=== PATIENT | female | born 1990 | race Caucasian/White ===

== ENCOUNTER 2021-06-01 15:13 | Outpatient (REF) | payer MEDICAID, SELFPAY ==
--- NOTE | ~2021-06-01 | MR_ITS ---
EXAMINATION: MR BRAIN WITHOUT AND WITH CONTRAST CLINICAL INFORMATION: Arnold-Chiari syndrome with spina bifida. Left leg numbness. COMPARISON: Brain MRI 02/22/2010. TECHNIQUE: Multiplanar, multisequence imaging of the brain was performed before and after the intravenous administration of 9 mL of Gadavist. FINDINGS: There is no acute infarction, mass, hemorrhage, or extra-axial collection. No abnormal or unexpected intracranial enhancement is seen. The ventricles, sulci, and basilar cisterns are normal in size and configuration. Normal appearance of the brain parenchyma The cerebellar tonsils are mildly low-lying. There is no effacement of cervicomedullary CSF. The upper cervical cord is unremarkable. The flow voids of the major intracranial arteries appear intact. The bones and extracranial soft tissues are within normal limits. MR/MR head/brain wo/w con IMPRESSION: No mass lesion, acute infarction, or abnormal intracranial enhancement. Mildly low-lying cerebellar tonsils.
== END 2021-06-01 15:14 | disposition home or self-care (01) ==
LOC: HO.MRI 15:13
PROVIDERS: Visit Provider Nurse Practitioner Family
DX: Q07.01 Arnold-Chiari syndrome with spina bifida (principal); R20.0 Anesthesia of skin
CPT/HCPCS: 70553; A9585

== ENCOUNTER 2023-06-24 17:48 | Outpatient (REF) | payer MEDICAID, SELFPAY ==
[2023-06-25 01:57] LABS: CT PCR NOT DETECTED (Not Detect.); NG PCR NOT DETECTED (Not Detect.)
== END 2023-06-24 17:49 | disposition home or self-care (01) ==
LOC: HO.HHCLNP 17:48
PROVIDERS: Visit Provider Nurse Practitioner Primary Care
DX: Z11.3 Encounter for screening for infections with a predominantly sexual mode of transmission (principal)
CPT/HCPCS: 0353U

== ENCOUNTER 2023-07-02 08:41 | Outpatient (REF) | payer MEDICAID, SELFPAY ==
[2023-07-02 11:50] LABS: Anion Gap 13 (12-20); Blood Urea Nitrogen 15 mg/dL (9-16); Calcium 9.6 mg/dL (8.4-10.2); Carbon Dioxide 23 mmol/L (22-29); Chloride 108 mmol/L (96-108); Cholesterol 187 mg/dL (<200); Estimated Glomerular Filt Rate > 60; Glucose Random 99 mg/dL (60-115); HDL Cholesterol 70 mg/dL (>40); LDL Cholesterol Calculated 102 mg/dL (<100); Potassium 4.5 mmol/L (3.3-5.1); Sodium 139 mmol/L (135-145); Triglycerides 75 mg/dL (<150)
[2023-07-02 11:52] LABS: TSH reflex Free T4 0.87 uIU/mL (0.32-4.0); Vitamin D 25-OH Total 53.4 ng/mL (>30)
[2023-07-02 12:08] LABS: Vitamin B12 387 pg/mL (200-900)
[2023-07-02 12:10] LABS: HIV AB/AG Nonreactive (Nonreactive); HIV Num 1 0.06 S/CO (0.00-0.99); ~HepC Num1 0.22 S/CO (0.00-0.79); ~Hepatitis C Antibody Nonreactive (Nonreactive)
[2023-07-03 14:24] LABS: RPR Rapid Plasma Reagin NON-REACTIVE (NON-REACTIVE)
== END 2023-07-02 08:42 | disposition home or self-care (01) ==
LOC: HO.HHCL 08:41
PROVIDERS: Visit Provider Nurse Practitioner Primary Care
DX: Z00.00 Encounter for general adult medical examination without abnormal findings (principal); R79.89 Other specified abnormal findings of blood chemistry; Z13.220 Encounter for screening for lipoid disorders; E53.8 Deficiency of other specified B group vitamins; Z11.3 Encounter for screening for infections with a predominantly sexual mode of transmission
CPT/HCPCS: 36415; 80048; 80061; 82306; 82607; 82746; 84443; 86592; 86803; 87389

== ENCOUNTER 2023-07-22 16:26 | Outpatient (REF) | payer OTHER, SELFPAY ==
--- NOTE | ~2023-07-22 | MM_ITS ---
EXAMINATION: MM SCREENING DIGITAL BREAST TOMOSYNTHESIS, BILATERAL CLINICAL INFORMATION: Screening. Asymptomatic. COMPARISON: Mammography: This is a baseline mammogram. TECHNIQUE: Digital breast tomosynthesis is performed in both the craniocaudal and mediolateral oblique views along with computer-aided detection (CAD). Synthesized 2D images are generated from the tomosynthesis. FINDINGS: There are scattered areas of fibroglandular density (ACR BI-RADS breast composition Category b). There are no significant masses, abnormal calcifications, or other abnormalities. MM/MM tomosynthesis screening BI IMPRESSION: No mammographic evidence of malignancy. ASSESSMENT: BI-RADS BI-RADS 1 - Negative RECOMMENDATION: Routine annual mammography screening. 1 year F/U This examination should not preclude the clinical evaluation of a suspicious palpable abnormality. This patient's information was entered into a reminder system with a target due date for their next mammogram.
== END 2023-07-22 16:27 | disposition home or self-care (01) ==
LOC: HO.MAMMO 16:26
PROVIDERS: PCP Nurse Practitioner Primary Care; Visit Provider Nurse Practitioner Primary Care
DX: Z12.31 Encounter for screening mammogram for malignant neoplasm of breast (principal)
CPT/HCPCS: 77063; 77067

== ENCOUNTER → 2023-07-22 16:30 | Outpatient (BNV) | payer OTHER, SELFPAY | PROVIDERS: PCP Nurse Practitioner Primary Care; Visit Provider Radiology Diagnostic Radiology | DX: Z12.31 Encounter for screening mammogram for malignant neoplasm of breast (principal) | CPT/HCPCS: 77063; 77067 ==

== ENCOUNTER → 2023-12-30 08:58 | Outpatient (BNV) | payer OTHER, SELFPAY | PROVIDERS: PCP Nurse Practitioner Primary Care; Visit Provider Internal Medicine | DX: Z80.3 Family history of malignant neoplasm of breast (principal); Z12.39 Encounter for other screening for malignant neoplasm of breast | CPT/HCPCS: 77049 ==

== ENCOUNTER 2023-12-30 09:04 | Outpatient (REF) | payer OTHER, SELFPAY ==
[2023-12-30] MEDS: gadobutroL 10 ML VIAL IVPUSH (10:31)
== END 2023-12-30 09:05 | disposition home or self-care (01) ==
LOC: HO.MRI 09:04
PROVIDERS: PCP Nurse Practitioner Primary Care; Visit Provider Nurse Practitioner Primary Care
DX: Z12.39 Encounter for other screening for malignant neoplasm of breast (principal)
CPT/HCPCS: 77049; A9585

== ENCOUNTER 2024-08-12 | Outpatient (REF) | payer OTHER, SELFPAY ==
[2024-08-17 17:58] LABS: C. trachomatis RNA TMA NOT DETECTED (NOT DETECTED); N. gonorrhoeae RNA TMA NOT DETECTED (NOT DETECTED)
[2024-08-18 00:54] LABS: Trichomonas (NAAT) NOT DETECTED (NOT DETECTED)
--- OUTSIDE RECORDS SUMMARY | 2024-08-18 12:14 | XMS_ITS | Encounter Summary ---
Author Organization [facility] Address [address] [place] [address] Phone Care Team Providers Care Director Of Hotel Name Role Phone Maria Elena Alston NP Primary Care Provider [phone] Encounter Details Date Type Department Care Team (Late st Contact Info) Description 09/19/2011 Documentation [facility] [place] Family Medicine [address] [place] [address] Family Medicine, Physician [address] [place], [place] [address] Social History Tobacco Use Types Packs/Day Years Used Date Smoking Tobacco: Never Assessed Comments Unknown Sex and Gender Information Value Date Recorded Sex Assigned at Not on file Legal Sex Female 4:52 PM EDT Gender Identity Not on file Sexual Orientation Not on file documented as of this encounter Plan of Treatment Not on file documented as of this encounter Visit Diagnoses Not on filedocumented in this encounter Care Teams Director Of Hotel Relationship Specialty Start Date End Date Maria Elena Alston NP PCP - General 09/20/16 documented as of this encounter
--- OUTSIDE RECORDS SUMMARY | 2024-08-18 12:14 | XMS_ITS | Encounter Summary ---
Author Organization [employer] Address [address] [place] [id number] Care Team Providers Care Seed Analysis Laboratory Assistant Name Role Phone Domonique Duong Primary Care Provider Reason for Visit * Reason Onset Date Comments Appointment Request 03/05/2023 Encounter Details Date Type Department Care Team ([facility] st Contact Info) Description 03/05/2023 Telephone [facility] MEDICINE [address] [place], [place] [phone] Domonique Duong ANP [address] [place] [address] Appointment Request Social History Tobacco Use Types Packs/Day Years Used Date Smoking Tobacco: Never Assessed Comments Unknown Sex and Gender Information Value Date Recorded Sex Assigned at Female 12/10/2021 10:36 AM EDT Legal Sex Female 10:36 AM EDT Gender Identity Female 06/30/2024 3:52 PM EDT Sexual Orientation Straight 06/30/2024 3: 52 PM EDT Sexual Orientation Choose not to disclose 2024 3:52 PM EDT documented as of this encounter Miscellaneous Notes * Telephone Encounter - Hemant Vee - 03/05/2023 2:51 PM EST Tc from pt requesting a PE Appt with provider. Please contact pt @ [phone] documented in this encounter Plan of Treatment Not on file documented as of this encounter Visit Diagnoses Not on filedocumented in this encounter Care Teams Seed Analysis Laboratory Assistant Relationship Specialty Start Date End Date Domonique Duong ANP [address] [place] [address] PCP - General Family Medicine 04/09/19 documented as of this encounter
== END 2024-08-12 00:01 | disposition home or self-care (01) ==
LOC: HO.HHCLNP
PROVIDERS: Visit Provider Advanced Practice Midwife
DX: Z12.4 Encounter for screening for malignant neoplasm of cervix (principal); Z11.3 Encounter for screening for infections with a predominantly sexual mode of transmission; N92.3 Ovulation bleeding
CPT/HCPCS: 87491; 87591; 87626; 87661; 88175

== ENCOUNTER 2024-08-31 06:28 | Outpatient (REF) | payer OTHER, SELFPAY ==
--- OUTSIDE RECORDS SUMMARY | 2024-08-31 06:31 | XMS_ITS | Encounter Summary ---
Author Organization [employer] Address [address] [place] [address] Care Team Providers Care Braided Band Assembler Name Role Phone Domonique Duong Primary Care Provider Reason for Visit * Reason Onset Date Comments Appointment Request 03/05/2023 Encounter Details Date Type Department Care Team ([facility] st Contact Info) Description 03/05/2023 Telephone [facility] MEDICINE [address] [place], [place] [phone] Domonique Duong ANP [address] [place] [address] Appointment Request Social History Tobacco Use Types [...] Appt with provider. Please contact pt @ [phone] documented in this encounter Plan of Treatment Not on file documented as of this encounter Visit Diagnoses Not on filedocumented in this encounter Care Teams Braided Band Assembler Relationship Specialty Start Date End Date Domonique Duong ANP [address] [place] [address] PCP - General Family Medicine 04/09/19 documented as of this encounter
--- OUTSIDE RECORDS SUMMARY | 2024-08-31 06:31 | XMS_ITS | Encounter Summary ---
Author Organization [facility] Address [address] [place] [address] Phone Care Team Providers Care Feeder/Folder Name Role Phone Maria Elena Alston NP Primary Care Provider [phone] Encounter Details Date Type Department Care Team (Late st Contact Info) Description 09/19/2011 Documentation [facility] [place] Family Medicine [address] [place] [address] Family Medicine, Physician [address] [place], [place] [address] Social History Tobacco Use Types Packs/Day Years [...] on filedocumented in this encounter Care Teams Feeder/Folder Relationship Specialty Start Date End Date Maria Elena Alston NP PCP - General 09/20/16 documented as of this encounter
--- OUTSIDE RECORDS SUMMARY | 2024-08-31 06:31 | XMS_ITS | Clinical Summary ---
Author Organization [facility] Address [address] [place] [address] Phone Care Team Providers Care Linen Room Custodian Name Role Phone Ad Domonique DUARTE Primary Care Provider [phone] Allergies No known active allergies Medications dextroamphetami ne-amphetamine (ADDERALL) 10 mg Tab tablet TAKE 1 TABLET BY MOUTH EVERY DAY TWICE A DAY EVERY MORNING AND AT 12:00 PM NOON 2021 Active cholecalciferol (VITAMIN D3) 2,000 unit tablet Take 1 tablet by mouth daily. 02/25/2020 Active Active Problems Problem Noted Date Diagnosed Date Anxiety and depression 06/07/2021 Chiari malformation 03/21/2015 Elevated blood-pressure read ing without diagnosis of hypertension 03/16/2015 Immunizations No known immunizations Social History Tobacco Use Types Packs/Day Years Used Date Smoking Tobacco: Never Smokeless Tobacco: Never Alcohol Use Standard Drinks/Week Comments Yes 0 (1 standard drink = 0.6 oz pur e alcohol) Education Answer Date Recorded Are you interested in more education? Not on chandra e 06/07/2022 Are you concerned about learning? Not on file 06/07/2022 No 06/07/2022 No 06/07/2022 Digital Access Answer Date Recorded No 07/06/2022 No 07/06/2022 No 07/06/2022 Reliable internet access at home? Not on file 07/06/2022 Device with a working camera? Not on file Comments Unknown Sex and Gender Information Value Date Recorded Sex Assigned at Female 07/09/2018 3:40 PM EDT Legal Sex Female 3:19 PM EDT Gender Identity Female 07/09/2018 3:40 PM EDT Sexual Orientation Straight 07/09/2018 3: 40 PM EDT Last Filed Vital Signs Vital Sign Reading Time Taken Comments Blood Pressure 123/77 06/07/2021 7:16 PM EDT Pulse 55 06/07/2021 7:16 PM EDT Temperature 36.6 C (97.9 F) 06/07/2021 7:16 PM EDT Respiratory Rate 20 06/07/2021 7:16 PM EDT Oxygen Saturation 100% 06/07/2021 7:16 PM EDT Inhaled Oxygen Concentration - - Weight 90.7 kg (200 lb) 06/07/2021 7:16 PM EDT Height 162.6 cm (5' 4 ) 06/07/2021 7:16 PM EDT Body Mass Index 34.33 06/07/2021 7:16 PM EDT Plan of Treatment Health Maintenance Due Date Last Done Comments DEPRESSION SCREENING 2004 HEPATITIS C SCREENING 2010 HIV ONE-TIME SCREENING (18-65 YEARS) 2010 PAP SMEAR 2013 COVID-19 VACCINE ( season) 2023 07/24/2020, 06/26/2020 Adult Td,Tdap Booster 04/09/2029 04/09/2019 , 06/26/2015, 01/13/2008, Additional history exists HIB VACCINES Completed 08/30/1993, 08/11, 1992, Additional history exists MENINGOCOCCAL VACCINES (ACWY) Aged Out 01/13/2008 No longer eligible based on patient's age to complete this topic SMOKING STATUS SCREENING (Once After 26 Yrs) Completed 07/09/2018 HEPATITIS A VACCINES Aged Out No long er eligible based on patient's age to complete this topic MENINGOCOCCAL VACCINES (B) Aged Out N o longer eligible based on patient's age to complete this topic PNEUMOCOCCAL VACCINES (0-49 years) Aged Out No longer eligible based on patient's age to complete this topic Medical Devices Not on file Insurance [facility] C3 ACO [facility] C3 ACO [facility] C3 ACO [facility]3 ACO [facility] C3 ACO [facility]3 ACO [facility]3 [facility] C3 ACO [facility] C3 ACO Care Teams Linen Room Custodian Relationship Specialty Start Date End Date Domonique Duong ANP [address] [place] [address] PCP - General Family Medicine 06/07/21 Additional Source Comments The information contained in this document represents components of the legal health record. It is not the complete legal health record.[facility]
== END 2024-08-31 06:29 | disposition home or self-care (01) ==
LOC: HO.LAB 06:28
PROVIDERS: PCP Nurse Practitioner Primary Care; Visit Provider Nurse Practitioner Primary Care
DX: Z00.00 Encounter for general adult medical examination without abnormal findings (principal); E55.9 Vitamin D deficiency, unspecified
CPT/HCPCS: 36415; 82306; 84443

== ENCOUNTER 2024-09-09 06:27 | Outpatient (REF) | payer OTHER, SELFPAY ==
--- NOTE | ~2024-09-09 | XR_ITS ---
EXAMINATION: XR HIP 2 OR MORE VIEWS RIGHT HISTORY: worsening R hip pain > 3 mo COMPARISON: There are no prior studies available for comparison. FINDINGS: Two views of the right hip are submitted. Osseous mineralization is normal. There is no fracture or dislocation. The joint space is maintained. The soft tissues are unremarkable. XR/XR hip RT min 2V IMPRESSION: Unremarkable examination of the right hip. Electronically signed by: Julian Yeboah MD 09/09/2024 07:06 AM EDT
--- OUTSIDE RECORDS SUMMARY | 2024-09-09 06:29 | XMS_ITS | Encounter Summary ---
Author Organization [employer] Address [address] [place] [address] Care Team Providers Care Supervisor Cook Room Name Role Phone Domonique Duong Primary Care Provider [phone] Reason for Visit * Reason Onset Date Comments Appointment Request 03/05/2023 Encounter Details Date Type Department Care Team ([facility] st Contact Info) Description 03/05/2023 Telephone [facility] MEDICINE [address] [place], [place] [phone] Domonique Duong ANP [address] [place] [address] Appointment Request Social History Tobacco Use Types [...] Appt with provider. Please contact pt @ [phone] documented in this encounter Plan of Treatment Not on file documented as of this encounter Visit Diagnoses Not on filedocumented in this encounter Care Teams Supervisor Cook Room Relationship Specialty Start Date End Date Domonique Duong ANP [address] [place] [address] PCP - General Family Medicine 04/09/19 documented as of this encounter
--- OUTSIDE RECORDS SUMMARY | 2024-09-09 06:29 | XMS_ITS | Clinical Summary ---
Author Organization [facility] Address [address] [place] [address] Phone Care Team Providers Care Pickle Sorter Name Role Phone Domonique Duong NP Primary Care Provider [phone] Allergies No known active allergies Medications dextroamphetami [...] topic Medical Devices Not on file Insurance [facility] C3 ACO [facility] C3 ACO [facility] A[facility] ACO [facility] ACO [facility] ACO [facility] ACO [facility]3 ACO [facility] C3 ACO Care Teams Pickle Sorter Relationship Specialty Start Date End Date Domonique Duong NP [address] [place] [address] PCP - General Family Medicine 06/07/21 Additional Source Comments The information contained in this document represents components of the legal health record. It is not the complete legal health record.[facility]
--- OUTSIDE RECORDS SUMMARY | 2024-09-09 06:30 | XMS_ITS | Encounter Summary ---
Author Organization [facility] Address [address] [place] [address] Phone Care Team Providers Care Sales Representative Electric Service Name Role Phone Maria Elena Alston NP Primary Care Provider [phone] Encounter Details Date Type Department Care Team (Late st Contact Info) Description 09/19/2011 Documentation [facility] [place] [address] [place] [address] Family Medicine, Physician [address] [place], [place] [address] Social History Tobacco Use Types Packs/Day Years [...] on filedocumented in this encounter Care Teams Sales Representative Electric Service Relationship Specialty Start Date End Date Maria Elena Alston NP PCP - General 09/20/16 documented as of this encounter
== END 2024-09-09 06:28 | disposition home or self-care (01) ==
LOC: HO.XRAY 06:27
PROVIDERS: PCP Nurse Practitioner Primary Care; Visit Provider Nurse Practitioner Primary Care
DX: M25.551 Pain in right hip (principal)
CPT/HCPCS: 73502

== ENCOUNTER → 2024-09-09 06:32 | Outpatient (BNV) | payer OTHER, SELFPAY | PROVIDERS: PCP Nurse Practitioner Primary Care; Visit Provider Radiology Diagnostic Radiology | DX: M25.551 Pain in right hip (principal) | CPT/HCPCS: 73502 ==

== ENCOUNTER 2024-09-15 12:24 | Outpatient (REF) | payer OTHER, SELFPAY ==
--- NOTE | ~2024-09-15 | MM_ITS ---
EXAMINATION: MM DIAGNOSTIC DIGITAL BREAST TOMOSYNTHESIS, BILATERAL Limited left breast ultrasound. CLINICAL INFORMATION: Palpable lump below the left breast superior abdomen. Patient has a strong family history of breast cancer. COMPARISON: Mammography: Comparison is made with relevant prior exams. TECHNIQUE: Digital breast mammography with tomosynthesis is performed in both the craniocaudal and mediolateral oblique views along with computer-aided detection (CAD). FINDINGS: The breasts are heterogeneously dense, which may obscure small masses (ACR BI-RADS breast composition Category c). BB marker below the left breast seen only on MLO view with an underlying asymmetry. No suspicious calcifications or other abnormal findings. Targeted color Doppler ultrasound scanning in the area the patient's palpable lump 8:00 14 cm from the nipple below the left breast demonstrates a subdermal hypoechoic oval cysts consistent with sebaceous cyst/epidermal inclusion cyst. The cyst measures 8 x 8 x 6 mm. Recommend clinical evaluation and follow-up for this area. Results are provided to the patient at time of visit by the technologist. MM/MM tomosynthesis diagnostic BI IMPRESSION: Right: Negative. Left: Subdermal hypoechoic sebaceous cyst/epidermal inclusion cyst at 8:00 14 cm from the nipple correlating with the patient's palpable lump. This is below the breast on the upper abdomen area and superficial. Recommend clinical evaluation and follow-up. The patient has a strong family history of breast cancer. ASSESSMENT: BI-RADS BI-RADS 2 - Benign Findings RECOMMENDATION: 1 year F/U Clinical evaluation and follow-up. This patient's information was entered into a reminder system with a target due date for their next mammogram. Electronically signed by: Jayna Magallon DO 09/15/2024 01:10 PM EDT
--- OUTSIDE RECORDS SUMMARY | 2024-09-15 13:02 | XMS_ITS | Encounter Summary ---
Author Organization [facility] Address [address] [place] [address] Phone Care Team Providers Care Rental Representative Name Role Phone Maria Elena Alston NP Primary Care Provider [phone] Encounter Details Date Type Department Care Team (Late st Contact Info) Description 09/19/2011 Documentation [facility] [place] Family Medicine [address] [place] [address] Family Medicine, Physician [address] [place], [place] [address] Social History Tobacco Use Types Packs/Day Years [...] on filedocumented in this encounter Care Teams Rental Representative Relationship Specialty Start Date End Date Maria Elena Alston NP PCP - General 09/20/16 documented as of this encounter
--- OUTSIDE RECORDS SUMMARY | 2024-09-15 13:02 | XMS_ITS | Encounter Summary ---
Author Organization [facility] Address [address] [place] [address] Care Team Providers Care Vending Technician Name Role Phone Margie Ralph DO Primary Care Pro vider Unavailable Encounter Details Date Type Department Care Team Description 04/23/2019 Release of Information Medical Records [address] [place] [id number] Abstract, Provider Social History Tobacco Use Types Packs/Day Years Used Date Smoking Tobacco: Former Smokeless Tobacco: Never Alcohol Use Standard Drinks/Week Comments Yes 0 (1 standard drink = 0.6 oz pur e alcohol) occ-soc Sex Assigned at Date Recorded Not on file documented as of this encounter Plan of Treatment Not on file documented as of this encounter Visit Diagnoses Not on filedocumented in this encounter Care Teams Vending Technician Relationship Specialty Start Date End Date Margie Ralph DO PCP - General Internal Medicine 03/14/15 documented as of this encounter
--- OUTSIDE RECORDS SUMMARY | 2024-09-15 13:02 | XMS_ITS | Encounter Summary ---
Author Organization [employer] Address [address] [place] [address] Care Team Providers Care Typewriter Tester Name Role Phone Domonique Duong Primary Care Provider [phone] Reason for Visit * Reason Onset Date Comments Appointment Request 03/05/2023 Encounter Details Date Type Department Care Team (Late st Contact Info) Description 03/05/[address] [facility] MEDICINE [address] [place], [place] [phone] Domonique Duong ANP [address] [place] [address] Appointment Request Social History Tobacco Use Types [...] Appt with provider. Please contact pt @ [phone] documented in this encounter Plan of Treatment Not on file documented as of this encounter Visit Diagnoses Not on filedocumented in this encounter Care Teams Typewriter Tester Relationship Specialty Start Date End Date Domonique Duong ANP [address] [place] [address] PCP - General Family Medicine 04/09/19 documented as of this encounter
--- OUTSIDE RECORDS SUMMARY | 2024-09-15 13:02 | XMS_ITS | Clinical Summary ---
Author Organization [facility] Address [address] [place] [address] Phone Care Team Providers Care Heating Equipment Repairer Name Role Phone Ad Domonique DUARTE Primary Care Provider [phone] Allergies No known active allergies Medications dextroamphetami [...] topic Medical Devices Not on file Insurance [facility] C3 ACO [facility] C3 ACO [facility] C3 ACO [facility] C3 ACO [facility] C3 ACO [facility] C3 ACO [facility] C3 [facility]CO [facility] C3 ACO [facility] C3 ACO Care Teams Heating Equipment Repairer Relationship Specialty Start Date End Date Domonique Duong ANP [address] [place] [address] PCP - General Family Medicine 06/07/21 Additional Source Comments The information contained in this document represents components of the legal health record. It is not the complete legal health record.[facility]
== END 2024-09-15 12:25 | disposition home or self-care (01) ==
LOC: HO.MAMMO 12:24
PROVIDERS: PCP Nurse Practitioner Primary Care; Visit Provider Advanced Practice Midwife
DX: F98.8 Other specified behavioral and emotional disorders with onset usually occurring in childhood and adolescence (principal); Q07.00 Arnold-Chiari syndrome without spina bifida or hydrocephalus; G57.11 Meralgia paresthetica, right lower limb; N63.24 Unspecified lump in the left breast, lower inner quadrant; Z80.3 Family history of malignant neoplasm of breast; Z12.39 Encounter for other screening for malignant neoplasm of breast
CPT/HCPCS: 76642; 77062; 77066; 99212

== ENCOUNTER → 2024-09-15 12:30 | Outpatient (BNV) | payer OTHER, SELFPAY | PROVIDERS: PCP Nurse Practitioner Primary Care; Visit Provider Internal Medicine | DX: N63.20 Unspecified lump in the left breast, unspecified quadrant (principal); Z80.3 Family history of malignant neoplasm of breast | CPT/HCPCS: 76642; 77062; 77066 ==

== ENCOUNTER 2024-09-15 15:41 | Outpatient (AMB) | payer OTHER, SELFPAY ==
--- NOTE | 2024-09-15 15:43 | A.OFFVIS_ITS ---
Intake Visit Reasons: 3 month ADD Allergies No Known Allergies Allergy (Unverified 09/15/24 15:48) Medication List - Last Reconciled 09/15/24 by Micki Cuba CNP cetirizine 10 mg PO DAILY dextroamphetamine-amphetamine 10 mg (Adderall) 10 mg PO BID 30 days HPI Comments Details: She was doing okay. 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 Having some intermittent numbness to right anterior lateral thigh for last few months. R hip XR ordered by PCP and completed PT for LBP. ADD symptoms generally well-controlled with Adderall, able to focus and complete tasks. Mood has been okay, some more stress lately related to family health. She has not seen therapist recently. Sleep was okay, melatonin helped. She was planning wedding for 04/2025 in [facility]. Got [employer] certification in fall 2023. She was diagnosed with Arnold-Chiari type II malformation at age 12 on an MRI that was done for evaluation. She was seen both locally and in [employer], but it was advised not to decompress it. Over the years, she has done fine. She has noted some memory issues and trouble with focus and attention. She did graduate from college and had good grades. She has no headache, balance problems, trouble swallowing, or other symptoms that could suggest compression of the brainstem. Memory is better. FORMERLY [facility], [facility] Medical History (Updated 09/15/24 @ 15:55 by Micki Cuba CNP) Neuropathy Arnold-Chiari malformation Anxiety and depression ADD (attention deficit disorder) Review of Systems Const Denies chills, Denies daytime sleepiness, Denies difficulty sleeping, Denies fatigue, Denies fever(s), Denies frequent falls, Denies headache(s), Denies increased appetite, Denies poor appetite, Denies snoring, Denies weakness, Denies weight gain and Denies weight loss Eyes Denies loss of vision ENT Denies vertigo, Denies dizziness, Denies headache(s) and Denies neck pain Card Denies chest pain at rest, Denies chest pain with activity, Denies syncope, Denies leg edema, Denies palpitations, Denies dyspnea and Denies dyspnea on exertion Resp Denies cough, Denies dyspnea, Denies dyspnea on exertion and Denies snoring GI Denies abdominal pain, Denies constipation, Denies heartburn, Denies diarrhea and Denies nausea Denies urinary frequency, Denies urinary incontinence and Denies urinary urgency Musc Denies abnormal gait, Denies back pain, Denies myalgias, Denies arthralgias, Denies neck pain, Reports numbness and Reports tingling Neuro Denies abnormal gait, Denies vertigo, Denies dizziness, Denies syncope, Denies frequent falls, Denies headache(s), Denies lack of coordination, Denies loss of vision, Reports memory loss, Reports numbness, Denies Other visual disturbances, Denies restless legs, Denies seizure-like activity, Reports tingling, Denies paresthesias, Denies tremor(s) and Denies weakness Psych Reports anxiety, Reports depression, Denies auditory hallucinations, Reports memory loss and Denies visual hallucinations Endo Denies fatigue and Denies palpitations Physical Exam Const Other: General Appearance:? normal, in no acute distress. Heart:? S1, S2 normal, no murmurs. Lungs:? clear anteriorly and posteriorly. Musculoskeletal:? normal. Extremities:? no edema. Psych:? alert, oriented, cognitive function intact, cooperative with exam. Neuro Other: Abnormal Neurological Findings:?none.? Mental Status: alert and oriented X 3. Normal attention, orientation, memory, and affect. Cranial Nerves: Pupils are equal, round, and reactive to light. External ocular muscles are intact. Visual wells are full, no ptosis. Face is symmetrical, no facial weakness or droop. Facial sensations are normal. Tongue protrudes in midline. Palate elevates symmetrically. Shoulder shrugging is normal Motor Examination: Normal muscle tone, bulk and strength. No atrophy or fasciculations. No drift of the extended upper extremities. DTR 2+. Plantars are flexor. Sensory Exam: Normal light touch, temperature, pinprick, vibration, and joint- position sensations. Rhomberg sign is absent. Coordination: No ataxia. No titubation. Oiqich-ze-fqea, weaf-ntrm-jwqv test, and rapid alternating movements were normal. Gait Exam: Within normal limits. Cerebellar Signs: Hnphdb-vh-wnna and svte-zq-xtet is normal. No dysdiadochokinesia. Extrapyramidal System: No tremor, rigidity with normal facial expressions. No bradykinesia. No bradyphrenia. Normal arm swing and posture. No propulsion or retropulsion. Speech: Normal. No dysphasia or dysarthria. Results Reviewed Results Reviewed: [address] [address] XRay Report Signed Patient: Ansley Zayas MR#: [id number] : 1990 Acct:[id number] Age/Sex: 34 / F ADM Date: 09/09/24 Loc: HO.XRAY Attending Dr: Onelia Stanford NP Ordering Physician: ONELIA STANFORD NP Date of Service: 09/09/24 Procedure(s): XR hip RT min 2V Accession Number(s): [id number] cc: ONELIA STANFORD NP~ EXAMINATION: XR HIP 2 OR MORE VIEWS RIGHT HISTORY: worsening R hip pain > 3 mo COMPARISON: There are no prior studies available for comparison. FINDINGS: Two views of the right hip are submitted. Osseous mineralization is normal. There is no fracture or dislocation. The joint space is maintained. The soft tissues are unremarkable. XR/XR hip RT min 2V IMPRESSION: Unremarkable examination of the right hip. Assessment & Plan Assessment & Plan (1) ADD (attention deficit disorder): Code(s): F98.8 - Other specified behavioral and emotional disorders with onset usually occurring in childhood and adolescence Category: Medical Qualifiers: Attention deficit type: unspecified type Qualified Code(s): F98.8 - Other specified behavioral and emotional disorders with onset usually occurring in childhood and adolescence Plan: Continue Adderall 10mg 1 tablet in the morning and at noon. (2) Meralgia paraesthetica: Code(s): G57.10 - Meralgia paresthetica, unspecified lower limb Category: Medical Qualifiers: Laterality: right Qualified Code(s): G57.11 - Meralgia paresthetica, right lower limb Plan: She was educated on this condition. Avoid wearing tight fitting clothing, belts, weight loss. Coding Level of Care Code Est Pt Level 4 (05329) Diagnoses Attention deficit disorder, unspecified type F98.8 Attention deficit type: unspecified type Meralgia paresthetica of right side G57.11 Laterality: right
== END 2024-09-15 16:06 | disposition home or self-care (01) ==
LOC: HO.HSM 15:42
PROVIDERS: PCP Nurse Practitioner Primary Care; Referring Provider Nurse Practitioner Primary Care; Visit Provider Registered Nurse
DX: F98.8 Other specified behavioral and emotional disorders with onset usually occurring in childhood and adolescence (principal); G57.11 Meralgia paresthetica, right lower limb
CPT/HCPCS: 99214

== ENCOUNTER 2024-09-17 13:49 | Outpatient (REF) | payer OTHER, SELFPAY ==
--- NOTE | ~2024-09-17 | US_ITS ---
EXAMINATION: US PELVIS TRANSABDOMINAL AND TRANSVAGINAL HISTORY: intermenstrual bleeding x 2-3y COMPARISON: There are no prior studies available for comparison. TECHNIQUE: Transabdominal and endovaginal real-time 2D fernandez-scale ultrasound was performed. FINDINGS: Uterus: The uterus is normal in size, measuring 7.0 x 3.0 x 4.5 cm. Myometrium has a normal echotexture. No fibroids are identified. Endometrium: The endometrial stripe measures 5 mm in thickness. Right ovary: The right ovary measures 3.9 x 2.4 x 2.3 cm. The right ovary is normal in size and echotexture. A few faint calcifications are noted. Left ovary: The left ovary measures 4.7 x 2.2 x 2.3 cm. The left ovary is normal in size and echotexture. Pelvic fluid: none. US/US pelvic and transvaginal IMPRESSION: Unremarkable pelvic ultrasound. Electronically signed by: Julian Yeboah MD 09/17/2024 03:02 PM EDT
--- OUTSIDE RECORDS SUMMARY | 2024-09-17 13:53 | XMS_ITS | Clinical Summary ---
Author Organization [facility] Address [address] [place] [address] Phone Care Team Providers Care Bobbin Winder Name Role Phone Ad Domonique DUARTE Primary Care Provider [phone] Allergies No known active allergies Medications dextroamphetami [...] topic Medical Devices Not on file Insurance [facility] [facility] [facility] [employer] [facility] [employer] [facility] [employer] [facility] C3 ACO Care Teams Bobbin Winder Relationship Specialty Start Date End Date Domonique Duong ANP [address] [place] [id number] PCP - General Family Medicine 06/07/21 Additional Source Comments The information contained in this document represents components of the legal health record. It is not the complete legal health record.[facility]
--- OUTSIDE RECORDS SUMMARY | 2024-09-17 13:53 | XMS_ITS | Encounter Summary ---
Author Organization [facility] Address [address] [place] [address] Phone Care Team Providers Care Sales Agent Trading Stamps Name Role Phone Maria Elena Aslton NP Primary Care Provider [phone] Encounter Details Date Type Department Care Team (Late st Contact Info) Description 09/19/2011 Documentation [facility] [place] [address] [place] [address] Family Medicine, Physician [address] [place], [place] [phone] Social History Tobacco Use Types Packs/Day Years [...] filedocumented in this encounter Care Teams Sales Agent Trading Stamps Relationship Specialty Start Date End Date Maria Elena Alston NP PCP - General 09/20/16 documented as of this encounter
--- OUTSIDE RECORDS SUMMARY | 2024-09-17 13:53 | XMS_ITS | Encounter Summary ---
Author Organization [employer] Address [address] [place] [address] Care Team Providers Care Track Surfacing Machine Operator Name Role Phone Domonique Duong Primary Care Provider [phone] Reason for Visit * Reason Onset Date Comments Appointment Request 03/05/2023 Encounter Details Date Type Department Care Team (Late st Contact Info) Description 03/05/2023 Telephone [facility] MEDICINE [address] [place], [place] [phone] Domonique Duong ANP [address] [place] [address] Appointment Request Social History Tobacco Use Types [...] Appt with provider. Please contact pt @ [phone] documented in this encounter Plan of Treatment Not on file documented as of this encounter Visit Diagnoses Not on filedocumented in this encounter Care Teams Track Surfacing Machine Operator Relationship Specialty Start Date End Date Domonique Duong ANP [address] [place] [address] PCP - General Family Medicine 04/09/19 documented as of this encounter
== END 2024-09-17 13:50 | disposition home or self-care (01) ==
LOC: HO.US 13:49
PROVIDERS: PCP Nurse Practitioner Primary Care; Visit Provider Advanced Practice Midwife
DX: N92.3 Ovulation bleeding (principal)
CPT/HCPCS: 76830; 76856

== ENCOUNTER → 2024-09-17 13:50 | Outpatient (BNV) | payer OTHER, SELFPAY | PROVIDERS: PCP Nurse Practitioner Primary Care; Visit Provider Radiology Diagnostic Radiology | DX: N92.6 Irregular menstruation, unspecified (principal) | CPT/HCPCS: 76830; 76856 ==

== ENCOUNTER 2024-09-23 13:31 | Outpatient (REF) | payer OTHER, SELFPAY ==
--- NOTE | ~2024-09-23 | XR_ITS ---
EXAMINATION: XR LUMBAR SPINE 2-3 VIEWS HISTORY: chronic low back pain COMPARISON: There are no prior studies for comparison. FINDINGS: AP, lateral, and coned down views of the lumbar spine are submitted. Osseous mineralization is normal. Five nonrib-bearing lumbar vertebral bodies are identified, maintaining normal height and alignment without evidence of fracture or spondylolisthesis. There is moderate disc space narrowing at L5-S1. The posterior elements are intact. The visualized paraspinal soft tissues are unremarkable. XR/XR lumbar spine 2-3V IMPRESSION: Moderate disc space narrowing at L5-S1. Electronically signed by: Julian Yeboah MD 09/23/2024 02:59 PM EDT
--- NOTE | ~2024-09-23 | XR_ITS ---
EXAMINATION: XR HIP 2 OR MORE VIEWS RIGHT HISTORY: R hip fall, struggling to bear weight COMPARISON: Comparison is made with the prior examination dated 09/09/2024. FINDINGS: Two views of the right hip are submitted. Osseous mineralization is normal. There is no fracture or dislocation. The joint space is maintained. The soft tissues are unremarkable. XR/XR hip RT min 2V IMPRESSION: Unremarkable examination of the right hip. Electronically signed by: Julian Yeboah MD 09/23/2024 02:59 PM EDT
--- OUTSIDE RECORDS SUMMARY | 2024-09-23 14:28 | XMS_ITS | Encounter Summary ---
Author Organization [facility] Address [address] [place] [address] Care Team Providers Care Production Hand Name Role Phone Margie Ralph DO Primary Care Pro vider Unavailable Encounter Details Date Type Department Care Team Description 04/23/2019 Release of Information Medical Records [address] [place] [id number] Abstract, Provider Social History Tobacco Use Types [...] on filedocumented in this encounter Care Teams Production Hand Relationship Specialty Start Date End Date Margie Ralph DO PCP - General Internal Medicine 03/14/15 documented as of this encounter
--- OUTSIDE RECORDS SUMMARY | 2024-09-23 14:28 | XMS_ITS | Clinical Summary ---
Author Organization [facility] Address [address] [place] [address] Phone Care Team Providers Care Three Dimensional Map Modeler Name Role Phone Ad Domonique DUARTE Primary Care Provider [phone] Allergies No known active allergies Medications dextroamphetami [...] topic Medical Devices Not on file Insurance [facility] C3 ACO [facility] C3 ACO [facility] C3 ACO [facility] C3 ACO [facility] C3 ACO [facility] C3 ACO [facility] C3 ACO [facility] C3 ACO [facility] C3 ACO Care Teams Three Dimensional Map Modeler Relationship Specialty Start Date End Date Domonique Duong ANP [address] [place] [id number] PCP - General Family Medicine 06/07/21 Additional Source Comments The information contained in this document represents components of the legal health record. It is not the complete legal health record.[facility]
--- OUTSIDE RECORDS SUMMARY | 2024-09-23 14:28 | XMS_ITS | Encounter Summary ---
Author Organization [employer] Address [address] [place] [address] Care Team Providers Care Sql Engineer Name Role Phone Domonique Duong Primary Care Provider [phone] Reason for Visit * Reason Onset Date Comments Appointment Request 03/05/2023 Encounter Details Date Type Department Care Team (Late st Contact Info) Description 03/05/2023 Telephone [facility] MED[facility]INE [address] [place], [place] [phone] Domonique Duong ANP [address] [place] [address] Appointment Request Social History Tobacco Use Types [...] Appt with provider. Please contact pt @ [phone] documented in this encounter Plan of Treatment Not on file documented as of this encounter Visit Diagnoses Not on filedocumented in this encounter Care Teams Sql Engineer Relationship Specialty Start Date End Date Domonique Duong ANP [address] [place] [address] PCP - General Family Medicine 04/09/19 documented as of this encounter
--- OUTSIDE RECORDS SUMMARY | 2024-09-23 14:28 | XMS_ITS | Encounter Summary ---
Author Organization [facility] Address [address] [place] [address] Phone Care Team Providers Care Supervisor Dried Yeast Name Role Phone Maria Elena Alston NP Primary Care Provider Encounter Details Date Type Department Care Team (Late st Contact Info) Description 09/19/2011 Documentation [facility] [place] Family Medicine [address] [place] [address] Family Medicine, Physician [address] [place], [place] [phone] Social History Tobacco Use Types Packs/Day Years [...] filedocumented in this encounter Care Teams Supervisor Dried Yeast Relationship Specialty Start Date End Date Maira Elena Alston NP PCP - General 09/20/16 documented as of this encounter
== END 2024-09-23 13:32 | disposition home or self-care (01) ==
LOC: HO.HHCX 13:31
PROVIDERS: PCP Nurse Practitioner Primary Care
DX: M54.50 Low back pain, unspecified (principal); M25.551 Pain in right hip; G89.29 Other chronic pain
CPT/HCPCS: 72100; 73502

== ENCOUNTER → 2024-09-23 14:00 | Outpatient (BNV) | payer OTHER, SELFPAY | PROVIDERS: PCP Nurse Practitioner Primary Care; Visit Provider Radiology Diagnostic Radiology | DX: M51.362 Other intervertebral disc degeneration, lumbar region with discogenic back pain and lower extremity pain (principal); M25.551 Pain in right hip; W19.XXXA Unspecified fall, initial encounter | CPT/HCPCS: 72100; 73502 ==

== ENCOUNTER 2024-09-27 14:28 | Outpatient (AMB) | payer OTHER, SELFPAY ==
[2024-09-27 14:52] VITALS: BP 155/82; PULSE 70; BMI 39.0
--- NOTE | 2024-09-27 14:52 | A.OFFVIS_ITS ---
Vital Signs 3 09/27/24 14:52 Height 5 ft 4 in Weight 227 lb BMI 39.0 BP 155/82 H Blood Pressure Location Lt brachial Position Sitting Pulse 70 Intake Visit Reasons: mass lower inner quad (L) breast Intake Note: Patient is seen in office for evaluation of a lump of the left breast, LIQ. us/mm:09/15/24 Patient denies any pain on her lower inner quad L breast. Denture Laboratory Technician Required: No Accompanied by: Self / Same As Patient Allergies No Known Allergies Allergy (Verified 09/27/24 14:51) Medication List - Last Reconciled 09/27/24 by Edgard Edwards MD cetirizine 10 mg PO DAILY dextroamphetamine-amphetamine 10 mg (Adderall) 10 mg PO BID 30 days HPI Comments Details: 34-year-old female patient presenting for evaluation of a lump located in the left chest wall below the left breast. She 1st noted the lump approximately 3-4 months ago but feels since this time the lump has actually decreased in size. She denies any significant pain redness or discharge from the site. She has been applying a black salve which seems to be helping to decrease the size. She denies any previous history of breast problems or breast surgery. Family history however is significant for her mother having breast cancer x2 and she subsequently succumbed to the disease. In addition her maternal grandmother also had breast cancer x2. The patient previously underwent genetic testing in 2016. She was found to have no clinically significant mutations. Your [facility] lifetime risk of breast cancer was calculated at 35.2%. She was placed on a high risk protocol including yearly mammogram alternating every 6 months with yearly breast MRI. A diagnostic mammogram and ultrasound performed on 09/15/2024 revealed an 8 x 8 x 6 mm subdermal hypoechoic oval cyst consistent with a sebaceous cyst located in the 8 o'clock position approximately 14 cm from the nipple below the actual breast tissue in the medial chest wall. No other suspicious findings were identified and the findings were felt to be benign (BI- RADS 2). FORMERLY [facility] Medical History Neuropathy Arnold-Chiari malformation Anxiety and depression ADD (attention deficit disorder) Review of Systems Const All systems reviewed & are unremarkable except as noted in HPI and below Physical Exam Vital Signs: Last Vital Signs Pulse 70 09/27/24 14:52 BP 155/82 H 09/27/24 14:52 BMI result Body Mass Index 39.0 Const General: cooperative and no acute distress Nutritional Appearance: well nourished Orientation/consciousness: patient oriented x3 Limitations: no limitations HEENT Head: Yes normocephalic and Yes atraumatic Ears: hearing grossly normal bilaterally Chest Other: Palpable intradermal lesion located below the inframammary crease in the left chest wall below the left breast measuring approximately 6 mm in diameter with no overlying skin change, tenderness, or fluctuance. Findings consistent with an epidermal inclusion cyst Chest/axillae images: 2 1. Site of palpable cyst left chest wall Resp Effort & Inspection: normal respiratory effort, no audible wheezes, no cough and no respiratory distress Cardio Jugular venous distension: no JVD GI Inspection: Yes normal to inspection Skin Other: Warm, dry, no rash Neuro General: patient oriented x3 Extrem General: Yes no clubbing, cyanosis or edema Assessment & Plan Assessment & Plan (1) Epidermal inclusion cyst: Code(s): L72.0 - Epidermal cyst Category: Medical Plan 34-year-old female patient with a high risk for breast cancer presenting with an epidermal inclusion cyst located in the left chest wall below the left breast. I reviewed the procedure to remove the lesion including the risks and benefits. She feels the cyst has decreased in size and is not particularly bothered by it at this time. We discussed excision as an option should the cyst increase in size, become infected or become symptomatic. She expressed understanding and agrees with the plan. Coding Level of Care Code New Pt Level 4 (44273) Diagnoses Epidermal inclusion cyst L72.0
--- OUTSIDE RECORDS SUMMARY | 2024-09-27 15:10 | XMS_ITS | Encounter Summary ---
Author Organization [employer] Address [address] [place] [address] Care Team Providers Care Rhythmic Gymnastics Coach Name Role Phone Domonique Duong Primary Care Provider Reason for Visit * Reason Onset Date Comments Appointment Request 03/05/2023 Encounter Details Date Type Department Care Team (Late st Contact Info) Description 03/05/2023 Telephone [facility] MEDICINE [address] [place], [place] [phone] Domonique Duong ANP [address] [place] [address] Appointment Request Social History Tobacco Use Types [...] Appt with provider. Please contact pt @ [phone] documented in this encounter Plan of Treatment Not on file documented as of this encounter Visit Diagnoses Not on filedocumented in this encounter Care Teams Rhythmic Gymnastics Coach Relationship Specialty Start Date End Date Domonique Duong ANP [address] [place] [address] PCP - General Family Medicine 04/09/19 documented as of this encounter
--- OUTSIDE RECORDS SUMMARY | 2024-09-27 15:11 | XMS_ITS | Encounter Summary ---
Author Organization [facility] Address [address] [place] [address] Phone Care Team Providers Care Process Lead Name Role Phone Maria Elena Alston NP Primary Care Provider [phone] Encounter Details Date Type Department Care Team (Late st Contact Info) Description 09/19/2011 [place] [facility] [place] [address] [place] [address] Family Medicine, Physician [address] [place], [place] [address] Social History Tobacco Use Types Packs/Day Years [...] on filedocumented in this encounter Care Teams Process Lead Relationship Specialty Start Date End Date Maria Elena Alston NP PCP - General 09/20/16 documented as of this encounter
--- OUTSIDE RECORDS SUMMARY | 2024-09-27 15:11 | XMS_ITS | Clinical Summary ---
Author Organization [facility] Address [address] [place] [address] Phone Care Team Providers Care Smelter Charger Name Role Phone Ad Domonique DUARTE Primary Care Provider [phone] Allergies No known active allergies Medications dextroamphetami [...] topic Medical Devices Not on file Insurance [facility] [employer] [facility] [facility] [employer] [facility] [employer] [facility] [employer] [facility] [employer] Care Teams Smelter Charger Relationship Specialty Start Date End Date Domonique Duong ANP [address] [place] [id number] PCP - General Family Medicine 06/07/21 Additional Source Comments The information contained in this document represents components of the legal health record. It is not the complete legal health record.[facility]
== END 2024-09-27 15:15 | disposition home or self-care (01) ==
LOC: HO.HGS 14:28
PROVIDERS: PCP Nurse Practitioner Primary Care; Visit Provider Surgery
DX: L72.0 Epidermal cyst (principal)
CPT/HCPCS: 99204

== ENCOUNTER → 2024-09-27 14:28 | Outpatient (BNVA) | payer OTHER, SELFPAY | PROVIDERS: PCP Nurse Practitioner Primary Care; Visit Provider Surgery | DX: L72.0 Epidermal cyst (principal) | CPT/HCPCS: 99202 ==

== ENCOUNTER 2024-11-02 09:00 | Outpatient (REF) | payer OTHER, SELFPAY ==
--- NOTE | 2024-11-02 09:33 | EMG_ITS ---
Chief complaint: Numbness and tingling of right lower extremity Reason for referral: Evaluate for peripheral neuropathy Referred by:Shaquille Harper NP Procedure done: Right lower extremity NCS/EMG Right tibial and peroneal motor studies were performed right superficial peroneal and sural sensory studies were performed and bilateral femoral lateral cutaneous sensory studies were also performed. Tibial H-reflex was obtained an EMG needle examination was performed. Superficial peroneal and sural sensory amplitudes were significantly diminished with conduction velocities in 20s and 30s. Lateral femoral cutaneous sensory conduction velocities were also diminished. Right tibial and peroneal motor distal latencies were prolonged with significant reduction of amplitude of peroneal response with conduction velocity in 20s while for tibial it was in 30s. Median and lateral mixed plantars responses were absent. F response was delayed for peroneal stimulation. Tibial H-reflex was absent. 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 There was no evidence of radiculopathy MTDD
--- OUTSIDE RECORDS SUMMARY | 2024-11-02 10:19 | XMS_ITS | Encounter Summary ---
Author Organization [employer] Address [address] [place] [address] 7 [place] [address] Care Team Providers Care Supervisor Silvering Department Name Role Phone Domonique Duong Primary Care Provider [phone] Reason for Visit * Reason Onset Date Comments Med Refill 11/26/2023 Encounter Details Date Type Department Care Team (Late st Contact Info) Description 11/26/2023 Refill [facility] [address] [place], [place] [phone] Domonique Duong ANP [address] [place] [address] Non-seasonal allergic rhinitis due to other allergic trigger Social History Tobacco Use Types Packs/Day Years Used Date Smoking Tobacco: Never Smokeless Tobacco: Never Depression Answer Date Recorded Patient Health Questionnaire-9 Score 0 06/24/2023 Patient Health Questionnaire-9 Score 0 06/24/2023 Last PHQ-9: Questionnaire Data Not on file 0 06/24/2023 Housing Stability Answer Date Recorded What is your housing situation today? I have garcia soto 06/24/[address] you li ve. Do you have problems with any of the following? None of the above 06/24/2023 Food Insecurity Answer Date Recorded Within the past 12 months, y ou worried that your food would run out before you got money to buy more: Never True 06/13/2023 Within the past 12 months,th e food you bought just didn't last and you didn't have enough money to get more: Never True 04/2023 Transportation Answer Date Recorded In the past 12 months, has l ack of transportation kept you from medical appts, meetings, work or from getting things needed for daily living? No 06/13/2023 Utilities Answer Date Recorded In the past 12 months, has t he electric, gas, oil or water company threatened to shut off services in your home? No 06/13/2023 Depression Answer Date Recorded Patient Health Questionnaire-2 Score 0 06/24/2023 Comments Unknown Sex and Gender Information Value Date Recorded Sex Assigned at Female 12/10/2021 10:36 AM EDT Legal Sex Female 10:36 AM EDT Gender Identity Female 06/30/2024 3:52 PM EDT Sexual Orientation Straight 06/30/2024 3: 52 PM EDT Sexual Orientation Choose not to disclose 2024 3:52 PM EDT documented as of this encounter Plan of Treatment Upcoming Encounters Date Type Department Care Team (Late st Contact Info) Description 12/23/2024 10:15 AM EST Office Visit [facility] [address] [place] [address] Domonique Duong ANP [address] [place] [address] documented as of this encounter Visit Diagnoses Diagnosis Non-seasonal allergic rhinitis due to other allergic trigger documented in this encounter Additional Health Concerns Assessment Noted Time PHQ-9 Depression Total Score: 0 06/24/19 24 10:23 AM EDT documented as of this encounter Care Teams Supervisor Silvering Department Relationship Specialty Start Date End Date Domonique Duong ANP [address] [place] [phone] PCP - General Family Medicine 04/09/19 documented as of this encounter
--- OUTSIDE RECORDS SUMMARY | 2024-11-02 10:19 | XMS_ITS | Encounter Summary ---
Author Organization [employer] Address [address] [place] [address] Care Team Providers Care Contact Worker Lithography Name Role Phone Domonique Duong Primary Care Provider [phone] Reason for Visit * Reason Onset Date Comments Appointment Request 03/05/2023 Encounter Details Date Type Department Care Team (Late st Contact Info) Description 03/05/2023 Telephone [facility]INE [address] [place], [place] [phone] Domonique Duong ANP [address] [place] [address] Appointment Request Social History Tobacco Use Types [...] Appt with provider. Please contact pt @ [phone] documented in this encounter Plan of Treatment Upcoming Encounters Date Type Department Care Team (Late st Contact Info) Description 12/23/2024 10:15 AM EST Office Visit [facility] [address] [place] [address] Domonique Duong ANP [address] [place] [address] documented as of this encounter Visit Diagnoses Not on filedocumented in this encounter Care Teams Contact Worker Lithography Relationship Specialty Start Date End Date Domonique Duong ANP [address] [place] [address] PCP - General Family Medicine 04/09/19 documented as of this encounter
--- OUTSIDE RECORDS SUMMARY | 2024-11-02 10:20 | XMS_ITS | Encounter Summary ---
Author Organization [facility] Address [address] [place] [address] Phone Care Team Providers Care Clamp Truck Driver Name Role Phone Maria Elena Alston NP Primary Care Provider [phone] Encounter Details Date Type Department Care Team (Late st Contact Info) Description 01/16/2012 Documentation [facility] Family Medicine [address] [place] [address] Family Medicine, Physician [address] [place], [place] [address] Social History Tobacco Use Types Packs/Day Years [...] on filedocumented in this encounter Care Teams Clamp Truck Driver Relationship Specialty Start Date End Date Maria Elena Alston NP PCP - General 09/20/16 documented as of this encounter
--- OUTSIDE RECORDS SUMMARY | 2024-11-02 10:20 | XMS_ITS | Encounter Summary ---
Author Organization [employer] Address [address] [place] [address] Care Team Providers Care Painter Sign Maintenance Name Role Phone Domonique Duong Primary Care Provider [phone] Encounter Details Date Type Department Care Team (Late st Contact Info) Description 07/17/2022 Orders Only [facility] MEDICINE [address] [place] [address] Melba Winchester LPN Social History Tobacco Use Types Packs/Day Years [...] Description 12/23/2024 10:15 AM EST Office Visit [facility] MEDICINE [address] [place] [address] Domonique Duong ANP [address] [place] [address] documented as of this encounter Visit Diagnoses Not on filedocumented in this encounter Care Teams Painter Sign Maintenance Relationship Specialty Start Date End Date Domonique Duong ANP [address] [place] [address] PCP - General Family Medicine 04/09/19 documented as of this encounter
--- OUTSIDE RECORDS SUMMARY | 2024-11-02 10:20 | XMS_ITS | Clinical Summary ---
Author Organization [facility] Address [address] [place] [address] Phone Care Team Providers Care Renal Case Manager Name Role Phone Maria Elena Alston KATIE Primary Care Provider [phone] Immunizations Immunization Administration Dates Next Due DTP 05/12/1997, 4,1992,10/10 H1N1 01/16/2009 HPV, Quadrivalent 01/16/2009,04/27/2008,01/13/20 08 Hep B, ped/adol 1992,1992,1992 Hib (PRP-T) 08/30/1993, 3,1992,07/11 IPV 11/12/1993,1992,1992 Influenza, injectable, trivalent 01/16/2009,04/2007 MMR 05/10/1996,05/17/1993 Meningococcal Conj (Menactra) MCV4P 01/13/2008 OPV 05/12/1997 Td (adult) (MBL), 2 Lf tetan us toxoid, PF, adsorbed 11/27/2004 Tdap 01/13/2008 Family History Relation Name Status Comments Father Father: Hyperte nsion Maternal Grandfather Materna l grandfather: cancer Maternal Grandmother Materna l grandmother: asthma/breast ca Mother Mother: hypothy roid/breast ca, Paternal Grandfather Paterna l grandfather: cancer/cardiac Social History Tobacco Use Types Packs/Day Years Used Date Smoking Tobacco: Former Comments:Former smoker Comments Unknown Sex and Gender Information Value Date Recorded Sex Assigned at Not on file Legal Sex Female 4:52 PM EDT Gender Identity Not on file Sexual Orientation Not on file Last Filed Vital Signs Vital Sign Reading Time Taken Comments Blood Pressure 100/60 09/18/2011 12:00 AM EDT Pulse - - Temperature 36.9 C (98.5 F) 2011 12:00 AM EDT Respiratory Rate - - Oxygen Saturation - - Inhaled Oxygen Concentration - - Weight 85.7 kg (189 lb) 09/18/2011 12:00 AM EDT Height 163.8 cm (5' 4.5 ) 09/18/2011 12:00 AM ED T Body Mass Index 31.94 09/18/2011 12:00 AM EDT Plan of Treatment Health Maintenance Due Date Last Done Comments Varicella Vaccines (1 of 2 - 13+ 2-dose series) 2005 DTaP,Tdap,and Td Vaccines (6 - Td or Tdap) 01/12/2018 01/13/2008, 11/27/2004, 05/12/1997, Additional history exists Influenza Vaccines (#1) 2024 01/16/2009, 01/12 COVID-19 Vaccine ( season) 2024 Hepatitis B Vaccines Completed 1992, 1992, 1992 HIB Vaccines Completed 08/30/1993, 05/1992, 1992, Additional history exists MMR Vaccines Completed 05/10/1996, 05/17/1993 IPV Vaccines Completed 05/12/1997, 04/1993, 1992, Additional history exists Meningococcal Vaccine Aged Out 01/13/2008 No filomena cayetano eligible based on patient's age to complete this topic HPV Vaccines Completed 01/16/2009, 04/10, 01/13/2008 Hepatitis A Vaccines Aged Out No long er eligible based on patient's age to complete this topic Men B Vaccine Aged Out No longer elig ible based on patient's age to complete this topic Pneumococcal Vaccine Aged Out No long er eligible based on patient's age to complete this topic Procedures * Due to [place] Lockr law, this organization might not be sharing sensitive test results. Procedure Name Priority Date/Time Associated Diagnosis Comments CHLAMYDIA AND GONORRHEA, AMPLIFIED Routine 12/28/2009 2:39 PM EST from Last 3 Months or Most Recently Relevant to Health Maintenance Results * Due to [place] Lock[place] law, this organization might not be sharing sensitive test results. * Chlamydia and Gonorrhoea, Amplified (12/28/2009 2:39 PM EST) Pathologist [facility] URINE CHLAMYDIA AMP PROBE NEGATIVE [facility] Comment: NO CHLAMYDIA TRACHOMATIS RNA DETECTED IN THIS PATIENT'S SAMPLE. (REFERENCE RANGE/NORMAL VALUE: NOT DETECTED) URINE GC AMP PROBE NEGATIVE [facility] Comment: NO NEISSERIA GONORRHOEAE RNA DETECTED IN THIS PATIENT'S SAMPLE. (REFERENCE RANGE/NORMAL VALUE: NOT DETECTED) NOTE: THIS TEST USES OIL AND GAS LEASE PUMPER MEDIATED AMPLIFICATION METHOD TO DETECT rRNA FROM C.TRACHOMATIS AND N.GONORRHOEAE. A NEGATIVE RESULT DOES NOT PRECLUDE INFECTION WITH C.TRACHOMATIS OR N.GONORRHOEAE BECAUSE RESULTS ARE DEPENDENT ON ADEQUATE SPECIMEN COLLECTION, ABSENCE OF INHIBITORS, AND SUFFICIENT rRNA TO BE DETECTED. THE APTIMA COMBO2 ASSAY IS NOT INTENDED FOR THE EVALUATION OF SUSPECTED SEXUAL ABUSE OR FOR OTHER MEDICO LEGAL INDICATIONS. IS TRUE FOR ALL NON CULTURE METHODS, A POSITIVE SPECIMEN OBTAINED FROM A PATIENT AFTER THERAPEUTIC TREATMENT CANNOT BE INTERPRETED INDICATING THE PRESENCE OF VIABLE C.TRACHOMATIS OR N.GONORRHOEAE. THERAPEUTIC FAILURE OR SUCCESS CANNOT BE DETERMINED WITH THE APTIMA COMBO2 ASSAY SINCE NUCLEIC ACID MAY PERSIST FOLLOWING APPROPRIATE ANTIMICROBIAL THERAPY. A NEGATIVE URINE RESULT FOR A PATIENT WHO IS CLINICALLY SUSPECTED OF HAVING A CHLAMYDIAL OR GONOCOCCAL INFECTION DOES NOT RULE OUT THE PRESENCE OF C.TRACHOMATIS OR N.GONORRHOEAE IN THE UROGENITAL TRACT. TESTING OF AN ENDOCERVICAL(FEMALE) OR URETHRAL(MALE) SPECIMEN IS RECOMMENDED IF THERE IS HIGH CLINICAL SUSPICION OF INFECTION. PRESERVCYT LIQUID PAP AND URINE SAMPLING ARE NOT DESIGNED TO REPLACE CERVICAL EXAMS AND ENDOCERVICAL SAMPLES FOR DIAGNOSIS OF FEMALE UROGENITAL INFECTIONS. PATIENTS MAY HAVE CERVICITIS, URETHRITIS, URINARY TRACT INFECTIONS, OR VAGINAL INFECTIONS DUE TO OTHER CAUSES OR CONCURRENT INFECTIONS WITH OTHER AGENTS. 12/28/2009 2:39 PM EST Narrative [facility] - 12/28/2009 2:39 PM EST URINE CHLAMYDIA GC AMP PROBE us Miranda Bess MD LAB MICROBIOLOGY - GENERAL ORDER ANGE Final Result [facility] [address] [place] [address], [place] from Last 3 Months or Most Recently Relevant to Health Maintenance Care Teams Renal Case Manager Relationship Specialty Start Date End Date Maria Elena Alston NP [facility] - General 09/20/16
--- OUTSIDE RECORDS SUMMARY | 2024-11-02 10:20 | XMS_ITS | Encounter Summary ---
Author Organization [employer] Address [address] [place] [address] [address] [place] [address] Care Team Providers Care Systems Programmer Analyst Name Role Phone Domonique Duong Primary Care Provider [phone] Encounter Details Date Type Department Care Team ([facility] st Contact Info) Description 08/31/2024 Results Follow-Up [facility] [address] [place], [place] [phone] Domonique Duong, ANP [address] [place] [address] TSH W/Reflex to FT4, Vitamin D, 25-Hydroxy, Total, Immunoassay Social History Tobacco Use Types Packs/Day Years Used Date Smoking Tobacco: Former Cigarettes Smokeless Tobacco: Current Comments:Vapes 5% nicotene o casional Alcohol Use Standard Drinks/Week Comments Not Currently 0 (1 standard drink = 0.6 oz pur e alcohol) Alcohol Answer Date Recorded How often do you have a drink containing alcohol ? 3 02/18/2024 How many drinks containing a lcohol do you have on a typical day when you are drinking? 2 02/18/2024 Frequency of Binge Drinking Not on file 09/2024 Depression Answer Date Recorded Patient Health Questionnaire-9 Score 9 07/01/2024 Patient Health Questionnaire-9 Score 9 07/01/2024 Last PHQ-9: Questionnaire Data Not on file 0 07/01/2024 Housing Stability Answer Date Recorded What is your housing situation today? I have garcia soto 07/01/[address] you li ve. Do you have problems with any of the following? None of the above 07/01/2024 Food Insecurity Answer Date Recorded Within the past 12 months, y ou worried that your food would run out before you got money to buy more: Never True 07/01/2024 Within the past 12 months,th e food you bought just didn't last and you didn't have enough money to get more: Never True Transportation Answer Date Recorded In the past 12 months, has l ack of transportation kept you from medical appts, meetings, work or from getting things needed for daily living? No 07/01/2024 Utilities Answer Date Recorded In the past 12 months, has t he electric, gas, oil or water company threatened to shut off services in your home? No 07/01/2024 Depression Answer Date Recorded Patient Health Questionnaire-2 Score 1 07/01/2024 Internet Access Answer Date Recorded Internet Access Q1 Yes 07/01/2024 Internet Access Q2 Not on file 07/01/2024 Comments No Sex and Gender Information Value Date Recorded Sex Assigned at Female 12/10/2021 10:36 AM EDT Legal Sex Female 10:36 AM EDT Gender Identity Female 06/30/2024 3:52 PM EDT Sexual Orientation Straight 06/30/2024 3: 52 PM EDT Sexual Orientation Choose not to disclose 2024 3:52 PM EDT documented as of this encounter Miscellaneous Notes * Result Encounter Note - FELICIA Valdovinos - 08/31/2024 9:02 AM EDT Dear Ansley Zayas, Your lab results are normal. Please call our office if you have any questions. Los resultados de laboratorio son normales. Por favor llame a la oficina si tiene preguntas. 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 documented in this encounter Plan of Treatment Upcoming Encounters Date Type Department Care Team (Late st Contact Info) Description 12/23/2024 10:15 AM EST Office Visit [facility] [address] [place] [address] Domonique Duong ANP [address] [place], [place] [phone] documented as of this encounter Visit Diagnoses Not on filedocumented in this encounter Additional Health Concerns Assessment Noted Time PHQ-9 Depression Total Score: 9 07/02/19 25 10:23 AM EDT documented as of this encounter Care Teams Systems Programmer Analyst Relationship Specialty Start Date End Date Domonique Duong ANP [address] [place] [address] PCP - General Family Medicine 04/09/19 documented as of this encounter
--- OUTSIDE RECORDS SUMMARY | 2024-11-02 10:20 | XMS_ITS | Encounter Summary ---
Author Organization [facility] Address [address] [place] [address] Phone Care Team Providers Care Citrus Peeler Name Role Phone Maria Elena Alston NP Primary Care Provider [phone] Encounter Details Date Type Department Care Team (Late st Contact Info) Description 09/19/2011 Documentation [facility] Family Medicine [address] [place] [address] Family Medicine, Physician [address] [place], [place] [phone] Social History Tobacco Use Types Packs/Day Years [...] on filedocumented in this encounter Care Teams Citrus Peeler Relationship Specialty Start Date End Date Maria Elena Alston NP PCP - General 09/20/16 documented as of this encounter
--- OUTSIDE RECORDS SUMMARY | 2024-11-02 10:20 | XMS_ITS | Clinical Summary ---
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 Active Diclofenac Sodium (Voltaren) 1 % gelIndication s:Right hip pain Apply as needed up to 4x/d for joint pain 100 g 2 07/16/19 25 Active nystatin (Mycostatin) 579033 UNIT/GM powder Apply topically 2 times daily. 30 g 08/13/19 25 026 Active naproxen (Naprosyn) 500 MG tabletIndicat ions:Right hip pain Use 1 tab twice daily for 7 days with food, then as needed for pain up to twice daily 60 tablet 10/28/19 25 Active cetirizine (ZyrTEC) 10 MG tabletIndicat ions:Non-seas onal allergic rhinitis due to other allergic trigger TAKE 1 TABLET BY MOUTH EVERY DAY 90 tablet 3 10/29/19 25 Active naproxen (Naprosyn) 500 MG tabletIndicat ions:Right hip pain Use twice daily for 7 days with food, then as needed for pain up to twice daily 60 tablet 11/05/19 24 025 Discontinued(Re order (will not trigger notification to Pharmacy)) cetirizine (ZyrTEC) 10 MG tabletIndicat ions:Non-seas onal allergic rhinitis due to other allergic trigger TAKE 1 TABLET BY MOUTH EVERY DAY 30 tablet 5 12/01/19 24 025 Discontinued(Re order (will not trigger notification to Pharmacy)) naproxen (Naprosyn) 500 MG tabletIndicat ions:Right hip pain Use twice daily for 7 days with food, then as needed for pain up to twice daily 60 tablet 10/27/19 25 025 Discontinued Active Problems Problem Noted Date Diagnosed Date Chronic midline low back pain 10/26/2024 Right hip pain 09/07/2024 Eczema 07/01/2024 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 Breast cancer screening, high risk patient 06/23 Anxiety and depression 06/07/2021 Family history of breast cancer 10/04/2015 Overview (06/24/2023): Monthly breast self-exam Breast self-awareness Breast and pelvic exams annual pelvic exams; clinical breast exams every 6-12 mos Mammography annually start at age 30 MRI of breast annually-start at age 30 Chiari malformation type I 03/21/2015 Encounters Date Type Department Care Team Description 10/27/2024 Refill [facility] [address] [place] [address] Onelia Stanford ANP Non-seasonal allergic rhinitis due to other allergic trigger 10/27/2024 Refill [facility] [address] [place] [address] Onelia Stanford ANP Right hip pain 10/26/2024 11:15 AM EDT Office Visit [facility] [address] [place] [address] Onelia Stanford ANP Chronic midline low back pain, unspecified whether sciatica present (Primary Dx); Right hip pain; Numbness and tingling of right lower extremity 10/26/2024 Refill [facility] [address] [place] [address] Onelia Stanford ANP Right hip pain 10/26/2024 Travel 10/25/2024 Telephone [facility] [address] [place] [address] Onelia Stanford ANP chart prep 10/21/[address] [address] Onelia Stanford ANP Letter for School/Work 10/20/2024 Orders Only [facility] [address] [facility] [place] [address] Mario Harper CNP Right hip pain (Primary Dx) 10/20/[address] [address] Onelia Stanford ANP Referral 09/23/2024 Results Follow-Up [address] [address] Mario Harper CNP XR Lumbar Spine 2-3 Views 09/22/2024 3:45 PM EDT Office Visit [address] [address] Mario Harper CNP Right hip pain (Primary Dx); Chronic midline low back pain, unspecified whether sciatica present; Numbness and tingling of right lower extremity 09/22/2024 Travel 09/22/[address] [address] Onelia Stanford ANP Nurse Triage 09/15/2024 Results Follow-Up [address] [address] Onelia Stanford ANP XR Hip 2 or 3 Views Right 09/15/2024 Orders Only [address] [address] Stephanie Aleman, GEETHA Mass of lower inner quadrant of left breast (Primary Dx); Family history of breast cancer 09/07/2024 Orders Only [address] [address] Onelia Stanford ANP Right hip pain (Primary Dx) 09/07/[address] [address] Onelia Stanford ANP Error (VOID this visit) 08/31/2024 Results Follow-Up [address] [address] Stanford, Onelia, ANP TSH W/Reflex to FT4, Vitamin D, 25-Hydroxy, Total, Immunoassay 08/18/2024 Results Follow-Up [facility] [address] [place] [address] Stephanie Aleman CNM Pap Smear, BI Mammogram Diagnostic Tomosynthesis Bilateral, BI US Breast Limited Left, US Pelvis Transvaginal 08/12/2024 9:00 AM EDT Procedure Visit [facility] [address] [place] [address] Stephanie Aleman CNM Cervical cancer screening (Primary Dx); Family history of breast cancer; Breast cancer screening, high risk patient; Screening examination for venereal disease; Dermatitis; Mass of lower inner quadrant of left breast; Intermenstrual bleeding 08/12/2024 Travel 08/11/2024 Telephone [facility] [address] [place] [address] Stephanie Aleman CNM chart prep from Last 3 Months Immunizations Immunization Administration Dates Next Due DTP 05/12/1997, 4,1992,10/10 DTaP 05/12/1997, 4,1992,10/10 DTaP / HiB / IPV 08/30/1993, 3,1992,07/11 HPV, Quadrivalent 01/16/2009,04/27/2008,01/13/20 08 Hep B, Adolescent or Pediatric 3,1992,1992,05/09 Hib (PRP-T) 08/30/1993, 3,1992,07/11 IPV 11/12/1993,1992,1992 Influenza, IIV3, injectable 01/16/2009, 8 Influenza, intradermal, quad rivalent, preservative free 12/02/2013 MMR 05/10/1996,05/17/1993 Meningococcal MCV4P ACYW-135 01/13/2008 Moderna Covid-19 Vaccine 12+ 07/24/2020,06/27/19 21 Novel [id number], all formulations 01/16/2009 OPV, Trivalent 05/12/1997, 4,1992,07/11 TD (adult), 2 Lf tetanus tox oid, preservative free, adsorbed 04/09/2019,11/27/2004 Tdap 01/13/2008 Family History Medical History Relation Name Comments Hypertension Father Clarence Zayas Breast cancer Maternal Grandmother Lavern Brar COPD Maternal Grandmother Lavern Brar Breast cancer Mother Lakia Valadez re currence at 48 Relation Name Status Comments Father Clarence Zayas Alive Maternal Grandmother Lavern Brar Mother Lakia Valadez Social History Tobacco Use Types Packs/Day Years Used Date Smoking Tobacco: Former Cigarettes Smokeless Tobacco: Current Tobacco Cessation:Ready to Q uit: Not Asked; Counseling Given: Not Answered Comments:Vapes 5% nicotene ocasional Alcohol Use Standard Drinks/Week Comments Not Currently [...] Q2 Not on file 07/01/2024 Comments No Intention Date Recorded No desire to become (finding) 0 08/12/2024 Sex and Gender Information Value Date Recorded Sex Assigned at Female 12/10/2021 10:36 AM EDT Legal Sex Female 10:36 AM EDT Gender Identity Female 06/30/2024 3:52 PM EDT Sexual Orientation Straight 06/30/2024 3: 52 PM EDT Sexual Orientation Choose not to disclose 2024 3:52 PM EDT Last Filed Vital Signs Vital Sign Reading Time Taken Comments Blood Pressure 120/80 10/26/2024 11:21 AM EDT Pulse 58 10/26/2024 11:21 AM EDT Temperature 36.9 C (98.5 F) 10/26/2024 11:21 AM EDT Respiratory Rate 17 10/26/2024 11:21 AM EDT Oxygen Saturation 99% 09/22/2024 4:13 PM EDT Inhaled Oxygen Concentration - - Weight 101 kg (222 lb 8 oz) 10/26/2024 11:21 AM EDT Height 162.6 cm (5' 4 ) 10/26/2024 11:21 AM EDT Body Mass Index 38.19 10/26/2024 11:21 AM EDT Plan of Treatment Upcoming Encounters Date Type Department Care Team (Late st Contact Info) Description 12/23/2024 10:15 AM EST Office Visit [facility] [address] [place] [address] Onelia Stanford ANP [address] [place] [address] Health Maintenance Due Date Last Done Comments COVID-19 Vaccine ( season) 2024 07/24/2020, 06/26/2020 Influenza Vaccine (#1) 2024 4, 01/16/2009, 01/16/2009, Additional history exists Depression Monitoring 01/01/2025 07/01/2024, 025 Alcohol/Substance Use Screening 02/17/2025 02/18/2024 Disability Screening 07/01/2025 07/01/2024 SDOH Screening 07/01/2025 07/01/2024 Family Planning (PISQ) 08/12/2025 08/12/2024 Mammogram 09/15/2025 09/15/2024, 08/07/2024, 12/30/2023, Additional history exists Tobacco Screening 10/26/2025 10/26/2024 Lipid Panel 07/01/2028 07/02/2023 DTaP/Tdap/Td Vaccines (8 - Td or Tdap) 04/09/2029 04/09/2019, 01/13/2008, 11/27/2004, Additional history exists Cervical Cancer Screening 08/12/2029 HPV/Cotest 08/12/2029 08/12/2024 Pap Smear 08/12/2029 08/12/2024 Zoster Vaccines (1 of 2) 2042 RSV Patients and Patients Aged 60 years or older (1 - 1-dose 75+ series) 05/10/2067 Hepatitis B Vaccines Completed 1992, 1992, 1992, Additional history exists HIB Vaccines Completed 08/30/1993, 08/11, 1992, Additional history exists IPV Vaccines Completed 05/12/1997, 1004/1993, 11/12/1993, Additional history exists Meningococcal Vaccine Aged Out 01/13/2008 No filomena cayetano eligible based on patient's age to complete this topic HPV Vaccines Completed 01/16/2009, 04/10, 01/13/2008 HIV Screening Completed 07/02/2023, 12/11, 04/09/2019 Hepatitis C Screening Completed 07/02/2023 , 12/23/2019, 04/09/2019 Hepatitis A Vaccines Aged Out No long er eligible based on patient's age to complete this topic Meningococcal B Vaccine Aged Out No l onger eligible based on patient's age to complete this topic Pneumococcal Vaccine: Pediatrics (0 to 5 Years) and At-Risk Patients (6 to 49) Years Aged Out No longer eligible based on patient's age to complete this topic RSV under 20 months Aged Out No longe r eligible based on patient's age to complete this topic Rotavirus Vaccines Aged Out No longer eligible based on patient's age to complete this topic Procedures Procedure Name Priority Date/Time Associated Diagnosis Comments XR HIP 2 OR 3 VIEWS RIGHT Routine 09/23/2024 1:26 PM EDT Right hip pain XR LUMBAR SPINE 2-3 VIEWS Routine 09/23/2024 1:24 PM EDT Chronic midline low back pain, unspecified whether sciatica present US PELVIS TRANSVAGINAL Urgent 2:24 PM EDT Intermenstrual bleeding BI US BREAST LIMITED LEFT Urgent 09/15/2024 12:52 PM EDT Family history of breast cancer Breast cancer screening, high risk patient Mass of lower inner quadrant of left breast BI MAMMOGRAM DIAGNOSTIC TOMOSYNTHESIS BILATERAL Urgent 09/15/2024 12:35 PM EDT Family history of breast cancer Breast cancer screening, high risk patient Mass of lower inner quadrant of left breast XR HIP 2 OR 3 VIEWS RIGHT Routine 09/09/2024 6:40 AM EDT Right hip pain VITAMIN D,25-OH,TOTAL,IA Routine 08/31/2024 6:36 AM EDT Vitamin D deficiency TSH W/REFLEX TO FT4 Routine 08/31/2024 6 :36 AM EDT Healthcare maintenance CHLAMYDIA/N. GONORRHOEAE AND T. VAGINALIS RNA, QUAL,TMA Routine 08/12/2024 9:31 AM EDT Screening examination for venereal disease PAP SMEAR Routine 08/12/2024 9:31 AM EDT Cervical cancer screening HPV DNA, LOW/HIGH RISK Routine 9:31 AM EDT HEPATITIS C AB W/REFL TO HCV RNA, QN, PCR Routine 07/02/2023 8:43 AM EDT Routine screening for STI (sexually transmitted infection) HIV 1/2 ANTIGEN/ANTIBODY, FOURTH GENERATION W/RFL Routine 07/02/2023 8:43 AM EDT Routine screening for STI (sexually transmitted infection) LIPID PANEL, STANDARD Routine 07/02/2023 8:43 AM EDT Lipid screening Healthcare maintenance from Last 3 Months or Most Recently Relevant to Health Maintenance Results * XR Hip 2 or 3 Views Right (09/23/2024 1:26 PM EDT) Only the most recent of2 resultswithin the time period is included. Anatomical Region Laterality Modality Lower Extremities, Hip Right Radiograp hic Imaging 09/23/2024 1:26 PM EDT Narrative 09/23/2024 3:01 [place] [address] XRay Report Signed Patient: Ansley Zayas MR#: [id number] : 1990 Acct:[id number] Age/Sex: 34 / F ADM Date: 09/23/24 Loc: HO.HHCX Attending Dr: Mario Harper PIANO MACHINE OPERATOR Ordering Physician: Mario Harper NP Date of Service: 09/23/24 Procedure(s): XR hip RT min 2V Accession Number(s): [id number] cc: ONELIA STANFORD PIANO MACHINE OPERATOR; Mario Harper PIANO MACHINE OPERATOR EXAMINATION: XR HIP 2 OR MORE VIEWS RIGHT HISTORY: R hip fall, struggling to bear weight COMPARISON: Comparison is made with the prior examination dated 09/09/2024. FINDINGS: Two views of the right hip are submitted. Osseous mineralization is normal. There is no fracture or dislocation. The joint space is maintained. The soft tissues are unremarkable. XR/XR hip RT min 2V IMPRESSION: Unremarkable examination of the right hip. Electronically signed by: Julian Yeboah MD 09/23/2024 02:59 PM EDT Dictated By: Julian Yeboah MD Signed By: <Electronically signed by Julian Yeboah MD in OV> 09/23/24 1459 DD/ 1326 TD/TT: 09/23/24 1400 Char Belt Operator: Procedure Note Whitney, Image - 09/23/[address] [address] XRay Report Signed Patient: Ansley ZayasMR#: [id number] : 1990Acct:[id number] Age/Sex: 34 / FADM Date: 09/23/24 Loc: HO.HHCX Attending Dr: Mario Harper PIANO MACHINE OPERATOR Ordering Physician: Mario Harper NP Date of Service: 09/23/24 Procedure(s): XR hip RT min 2V Accession Number(s): [id number] cc: ONELIA STANFORD PIANO MACHINE OPERATOR; Mario Harper PIANO MACHINE OPERATOR EXAMINATION: XR HIP 2 OR MORE VIEWS RIGHT HISTORY: R hip fall, struggling to bear weight COMPARISON: Comparison is made with the prior examination dated 09/09/2024. FINDINGS: Two views of the right hip are submitted. Osseous mineralization is normal. There is no fracture or dislocation. The joint space is maintained. The soft tissues are unremarkable. XR/XR hip RT min 2V IMPRESSION: Unremarkable examination of the right hip. Electronically signed by: Julian Yeboah MD 09/23/2024 02:59 PM EDT RP Dictated By: Julian Yeboah MD Signed By: <Electronically signed by Julian Yeboah MD in OV> 09/23/24 1459 DD/ 1326 TD/TT: 09/23/24 1400 Char Belt Operator: Mario Harper FIRE SPRINKLER SERVICE TECHNICIAN IMG XR PROCEDURES Final R esult * XR Lumbar Spine 2-3 Views (09/23/2024 1:24 PM EDT) Anatomical Region Laterality Modality Spine, L-spine Radiographic Nahomi ging 09/23/2024 1:24 PM EDT Narrative 09/23/2024 3:02 PM EDT [facility] [address] [place] [address] XRay Report Signed Patient: Ansley Zayas MR#: [id number] : 1990 Acct:[id number] Age/Sex: 34 / F ADM Date: 09/23/24 Loc: ANDREI Attending Dr: Mario Harper PIANO MACHINE OPERATOR Ordering Physician: Mario Harper NP Date of Service: 09/23/24 Procedure(s): XR lumbar spine 2-3V Accession Number(s): [id number] cc: ONELIA STANFORD PIANO MACHINE OPERATOR; Mario Harper NP EXAMINATION: XR LUMBAR SPINE 2-3 VIEWS HISTORY: chronic low back pain COMPARISON: There are no prior studies for comparison. FINDINGS: AP, lateral, and coned down views of the lumbar spine are submitted. Osseous mineralization is normal. Five nonrib-bearing lumbar vertebral bodies are identified, maintaining normal height and alignment without evidence of fracture or spondylolisthesis. There is moderate disc space narrowing at L5-S1. The posterior elements are intact. The visualized paraspinal soft tissues are unremarkable. XR/XR lumbar spine 2-3V IMPRESSION: Moderate disc space narrowing at L5-S1. Electronically signed by: Julian Yeboah MD 09/23/2024 02:59 PM EDT Dictated By: Julian Yeboah MD Signed By: <Electronically signed by Julian Yeboah MD in OV> 09/23/24 1459 DD/ 1324 TD/TT: 09/23/24 1400 Char Belt Operator: Procedure Note Donotuseinterpreter, Image - 09/23/2024 [facility] [address] [place] [address] XRay Report Signed Patient: Ansley ZayasMR#: [id number] : 1990Acct:[id number] Age/Sex: 34 / FADM Date: 09/23/24 Loc: ANDREI Attending Dr: Mario Harper PIANO MACHINE OPERATOR Ordering Physician: Mario Harper NP Date of Service: 09/23/24 Procedure(s): XR lumbar spine 2-3V Accession Number(s): [id number] cc: ONELIA STANFORD PIANO MACHINE OPERATOR; Mario Harper PIANO MACHINE OPERATOR EXAMINATION: XR LUMBAR SPINE 2-3 VIEWS HISTORY: chronic low back pain COMPARISON: There are no prior studies for comparison. FINDINGS: AP, lateral, and coned down views of the lumbar spine are submitted. Osseous mineralization is normal. Five nonrib-bearing lumbar vertebral bodies are identified, maintaining normal height and alignment without evidence of fracture or spondylolisthesis. There is moderate disc space narrowing at L5-S1. The posterior elements are intact. The visualized paraspinal soft tissues are unremarkable. XR/XR lumbar spine 2-3V IMPRESSION: Moderate disc space narrowing at L5-S1. Electronically signed by: Julian Yeboah MD 09/23/2024 02:59 PM EDT Dictated By: Julian Yeboah MD Signed By: <Electronically signed by Julian Yeboah MD in OV> 09/23/24 1459 DD/ 1324 TD/TT: 09/23/24 1400 Char Belt Operator: us Alexxi Leroy FIRE SPRINKLER SERVICE TECHNICIAN IMG XR PROCEDURES Final R esult * US Pelvis Transvaginal (09/17/2024 2:24 PM EDT) Anatomical Region Laterality Modality Pelvis Ultrasound 09/17/2024 2:24 PM EDT Narrative 09/17/2024 3:04 PM EDT [place] [address] Ultrasound Report Signed Patient: Ansley Zayas MR#: [id number] : 1990 Acct:[id number] Age/Sex: 34 / F ADM Date: 09/17/24 Loc: HO.US Attending Dr: Stephanie Aleman CNM Ordering Physician: STEPHANIE ALEMAN CNM Date of Service: 09/17/24 Procedure(s): US pelvic and transvaginal Accession Number(s): [id number] cc: STEPHANIE ALEMAN CNM; ONELIA STANFORD NP EXAMINATION: US PELVIS TRANSABDOMINAL AND TRANSVAGINAL HISTORY: intermenstrual bleeding x 2-3y COMPARISON: There are no prior studies available for comparison. TECHNIQUE: Transabdominal and endovaginal real-time 2D fernandez-scale ultrasound was performed. FINDINGS: Uterus: The uterus is normal in size, measuring 7.0 x 3.0 x 4.5 cm. Myometrium has a normal echotexture. No fibroids are identified. Endometrium: The endometrial stripe measures 5 mm in thickness. Right ovary: The right ovary measures 3.9 x 2.4 x 2.3 cm. The right ovary is normal in size and echotexture. A few faint calcifications are noted. Left ovary: The left ovary measures 4.7 x 2.2 x 2.3 cm. The left ovary is normal in size and echotexture. Pelvic fluid: none. US/US pelvic and transvaginal IMPRESSION: Unremarkable pelvic ultrasound. Electronically signed by: Julian Yeboah MD 09/17/2024 03:02 PM EDT Dictated By: Julian Yeboah MD Signed By: <Electronically signed by Julian Yeboah MD in OV> 09/17/24 1502 DD/ 1424 TD/TT: 09/17/24 1440 Char Belt Operator: Procedure Note Donotuseinterpreter, Image - 09/17/2024 [place] [address] Ultrasound Report Signed Patient: Ansley Zayas#: [id number] : 1990Acct:[id number] Age/Sex: 34 / FADM Date: 09/17/24 Loc: HO.US Attending Dr: Stephanie Aleman CNM Ordering Physician: STEPHANIE ALEMAN CNM Date of Service: 09/17/24 Procedure(s): US pelvic and transvaginal Accession Number(s): [id number] cc: STEPHANIE ALEMAN CNM; ONELIA STANFORD NP EXAMINATION: US PELVIS TRANSABDOMINAL AND TRANSVAGINAL HISTORY: intermenstrual bleeding x 2-3y COMPARISON: There are no prior studies available for comparison. TECHNIQUE: Transabdominal and endovaginal real-time 2D fernandez-scale ultrasound was performed. FINDINGS: Uterus: The uterus is normal in size, measuring 7.0 x 3.0 x 4.5 cm. Myometrium has a normal echotexture. No fibroids are identified. Endometrium: The endometrial stripe measures 5 mm in thickness. Right ovary: The right ovary measures 3.9 x 2.4 x 2.3 cm. The right ovary is normal in size and echotexture. A few faint calcifications are noted. Left ovary: The left ovary measures 4.7 x 2.2 x 2.3 cm. The left ovary is normal in size and echotexture. Pelvic fluid: none. US/US pelvic and transvaginal IMPRESSION: Unremarkable pelvic ultrasound. Electronically signed by: Julian Yeboah MD 09/17/2024 03:02 PM EDT Dictated By: Julian Yeboah MD Signed By: <Electronically signed by Julian Yeboah MD in OV> 09/17/24 1502 DD/ 1424 TD/TT: 09/17/24 1440 Char Belt Operator: us Stephanie Aleman CNM IMG US PROCEDURES Final R esult * BI US Breast Limited Left (09/15/2024 12:52 PM EDT) Anatomical Region Laterality Modality Breast Left Ultrasound 09/15/2024 12:5 2 PM EDT Narrative 09/15/2024 1:13 PM EDT [facility] [address] [place] [address] Ultrasound Report Signed Patient: Ansley Zayas MR#: [id number] : 1990 Acct:[id number] Age/Sex: 34 / F ADM Date: 09/15/24 Loc: HO.MAMMO Attending Dr: Stephanie Aleman CNM Ordering Physician: STEPHANIE ALEMAN CNM Date of Service: 09/15/24 Procedure(s): US breast LT limited mamm only Accession Number(s): [id number] cc: STEPHANIE ALEMAN CNM; ONELIA STANFORD NP EXAMINATION: MM DIAGNOSTIC DIGITAL BREAST TOMOSYNTHESIS, BILATERAL Limited left breast ultrasound. CLINICAL INFORMATION: Palpable lump below the left breast superior abdomen. Patient has a strong family history of breast cancer. COMPARISON: Mammography: Comparison is made with relevant prior exams. TECHNIQUE: Digital breast mammography with tomosynthesis is performed in both the craniocaudal and mediolateral oblique views along with computer-aided detection (CAD). FINDINGS: The breasts are heterogeneously dense, which may obscure small masses (ACR BI-RADS breast composition Category c). BB marker below the left breast seen only on MLO view with an underlying asymmetry. No suspicious calcifications or other abnormal findings. Targeted color Doppler ultrasound scanning in the area the patient's palpable lump 8:00 14 cm from the nipple below the left breast demonstrates a subdermal hypoechoic oval cysts consistent with sebaceous cyst/epidermal inclusion cyst. The cyst measures 8 x 8 x 6 mm. Recommend clinical evaluation and follow-up for this area. Results are provided to the patient at time of visit by the technologist. US/US breast LT limited mamm only IMPRESSION: Right: Negative. Left: Subdermal hypoechoic sebaceous cyst/epidermal inclusion cyst at 8:00 14 cm from the nipple correlating with the patient's palpable lump. This is below the breast on the upper abdomen area and superficial. Recommend clinical evaluation and follow-up. The patient has a strong family history of breast cancer. ASSESSMENT: BI-RADS BI-RADS 2 - Benign Findings RECOMMENDATION: 1 year F/U Clinical evaluation and follow-up. This patient's information was entered into a reminder system with a target due date for their next mammogram. Electronically signed by: Jayna Magallon DO 09/15/2024 01:10 PM EDT Dictated By: Jayna Magallon DO Signed By: <Electronically signed by Jayna Magallon DO in OV> 09/15/24 1310 DD/ 1252 TD/TT: 09/15/24 1308 Char Belt Operator: Procedure Note Donotuseinterpreter, Image - 09/15/2024 [facility] [address] [place] [address] Ultrasound Report Signed Patient: Ansley ZayasMR#: [id number] : 1990Acct:[id number] Age/Sex: 34 / FADM Date: 09/15/24 Loc: HO.MAMMO Attending Dr: Stephanie Aleman CNM Ordering Physician: STEPHANIE ALEMAN CNM Date of Service: 09/15/24 Procedure(s): US breast LT limited mamm only Accession Number(s): [id number] cc: STEPHANIE ALEMAN CNM; ONELIA STANFORD NP EXAMINATION: MM DIAGNOSTIC DIGITAL BREAST TOMOSYNTHESIS, BILATERAL Limited left breast ultrasound. CLINICAL INFORMATION: Palpable lump below the left breast superior abdomen. Patient has a strong family history of breast cancer. COMPARISON: Mammography: Comparison is made with relevant prior exams. TECHNIQUE: Digital breast mammography with tomosynthesis is performed in both the craniocaudal and mediolateral oblique views along with computer-aided detection (CAD). FINDINGS: The breasts are heterogeneously dense, which may obscure small masses (ACR BI-RADS breast composition Category c). BB marker below the left breast seen only on MLO view with an underlying asymmetry. No suspicious calcifications or other abnormal findings. Targeted color Doppler ultrasound scanning in the area the patient's palpable lump 8:00 14 cm from the nipple below the left breast demonstrates a subdermal hypoechoic oval cysts consistent with sebaceous cyst/epidermal inclusion cyst. The cyst measures 8 x 8 x 6 mm. Recommend clinical evaluation and follow-up for this area. Results are provided to the patient at time of visit by the technologist. US/US breast LT limited mamm only IMPRESSION: Right: Negative. Left: Subdermal hypoechoic sebaceous cyst/epidermal inclusion cyst at 8:00 14 cm from the nipple correlating with the patient's palpable lump. This is below the breast on the upper abdomen area and superficial. Recommend clinical evaluation and follow-up. The patient has a strong family history of breast cancer. ASSESSMENT: BI-RADS BI-RADS 2 - Benign Findings RECOMMENDATION: 1 year F/U Clinical evaluation and follow-up. This patient's information was entered into a reminder system with a target due date for their next mammogram. Electronically signed by: Jayna Magallon DO 09/15/2024 01:10 PM EDT Dictated By: Jayna Magallon DO Signed By: <Electronically signed by Jayna Magallon DO in OV> 09/15/24 1310 DD/ 1252 TD/TT: 09/15/24 1308 Char Belt Operator: us Stephanie Aleman CNM IMG US PROCEDURES Final R esult * BI Mammogram Diagnostic Tomosynthesis Bilateral (09/15/2024 12:35 PM EDT) Anatomical Region Laterality Modality Breast Bilateral Mammography 09/15/2024 12:3 5 PM EDT Narrative 09/15/2024 1:13 PM EDT [facility] [place] [address] Mammography Report Signed Patient: Ansley Zayas MR#: [id number] : 1990 Acct:[id number] Age/Sex: 34 / F ADM Date: 09/15/24 Loc: HO.MAMMO Attending Dr: Stephanie Aleman CNM Ordering Physician: STEPHANIE ALEMAN CNM Results: 2 Benign Findings Date of Service: 09/15/24 Follow Up: 1 Year From [facility] Mammogram Procedure(s): MM tomosynthesis diagnostic BI Accession Number(s): [id number] cc: STEPHANIE ALEMAN CNM; ONELIA STANFORD NP EXAMINATION: MM DIAGNOSTIC DIGITAL BREAST TOMOSYNTHESIS, BILATERAL Limited left breast ultrasound. CLINICAL INFORMATION: Palpable lump below the left breast superior abdomen. Patient has a strong family history of breast cancer. COMPARISON: Mammography: Comparison is made with relevant prior exams. TECHNIQUE: Digital breast mammography with tomosynthesis is performed in both the craniocaudal and mediolateral oblique views along with computer-aided detection (CAD). FINDINGS: The breasts are heterogeneously dense, which may obscure small masses (ACR BI-RADS breast composition Category c). BB marker below the left breast seen only on MLO view with an underlying asymmetry. No suspicious calcifications or other abnormal findings. Targeted color Doppler ultrasound scanning in the area the patient's palpable lump 8:00 14 cm from the nipple below the left breast demonstrates a subdermal hypoechoic oval cysts consistent with sebaceous cyst/epidermal inclusion cyst. The cyst measures 8 x 8 x 6 mm. Recommend clinical evaluation and follow-up for this area. Results are provided to the patient at time of visit by the technologist. MM/MM tomosynthesis diagnostic BI IMPRESSION: Right: Negative. Left: Subdermal hypoechoic sebaceous cyst/epidermal inclusion cyst at 8:00 14 cm from the nipple correlating with the patient's palpable lump. This is below the breast on the upper abdomen area and superficial. Recommend clinical evaluation and follow-up. The patient has a strong family history of breast cancer. ASSESSMENT: BI-RADS BI-RADS 2 - Benign Findings RECOMMENDATION: 1 year F/U Clinical evaluation and follow-up. This patient's information was entered into a reminder system with a target due date for their next mammogram. Electronically signed by: Jayna Magallon DO 09/15/2024 01:10 PM EDT Dictated By: Jayna Magallon DO Signed By: <Electronically signed by Jayna Magallon DO in OV> 09/15/24 1310 DD/ 1235 TD/TT: 09/15/24 1248 Char Belt Operator: Procedure Note Donotuseinterpreter, Image - 09/15/2024 [facility] [address] [place] [address] [place] [address] Mammography Report Signed Patient: Ansley ZayasMR#: [id number] : 1990Acct:[id number] Age/Sex: 34 / FADM Date: 09/15/24 Loc: HO.MAMMO Attending Dr: Stephanie Aleman CNM Ordering Physician: STEPHANIE ALEMANesults: 2 Benign Findings Date of Service: 09/15/24Follow Up: 1 Year From Orig inal Mammogram Procedure(s): MM tomosynthesis diagnostic BI Accession Number(s): [id number] cc: STEPHANIE ALEMAN CNM; ONELIA STANFORD NP EXAMINATION: MM DIAGNOSTIC DIGITAL BREAST TOMOSYNTHESIS, BILATERAL Limited left breast ultrasound. CLINICAL INFORMATION: Palpable lump below the left breast superior abdomen. Patient has a strong family history of breast cancer. COMPARISON: Mammography: Comparison is made with relevant prior exams. TECHNIQUE: Digital breast mammography with tomosynthesis is performed in both the craniocaudal and mediolateral oblique views along with computer-aided detection (CAD). FINDINGS: The breasts are heterogeneously dense, which may obscure small masses (ACR BI-RADS breast composition Category c). BB marker below the left breast seen only on MLO view with an underlying asymmetry. No suspicious calcifications or other abnormal findings. Targeted color Doppler ultrasound scanning in the area the patient's palpable lump 8:00 14 cm from the nipple below the left breast demonstrates a subdermal hypoechoic oval cysts consistent with sebaceous cyst/epidermal inclusion cyst. The cyst measures 8 x 8 x 6 mm. Recommend clinical evaluation and follow-up for this area. Results are provided to the patient at time of visit by the technologist. MM/MM tomosynthesis diagnostic BI IMPRESSION: Right: Negative. Left: Subdermal hypoechoic sebaceous cyst/epidermal inclusion cyst at 8:00 14 cm from the nipple correlating with the patient's palpable lump. This is below the breast on the upper abdomen area and superficial. Recommend clinical evaluation and follow-up. The patient has a strong family history of breast cancer. ASSESSMENT: BI-RADS BI-RADS 2 - Benign Findings RECOMMENDATION: 1 year F/U Clinical evaluation and follow-up. This patient's information was entered into a reminder system with a target due date for their next mammogram. Electronically signed by: Jayna Magallon DO 09/15/2024 01:10 PM EDT Dictated By: Jayna Magallon DO Signed By: <Electronically signed by Jayna Magallon DO in OV> 09/15/24 1310 DD/ 1235 TD/TT: 09/15/24 1248 Char Belt Operator: us Stephanie AGUIRREM IMG BI PROCEDURES Final R esult * Vitamin D, 25-Hydroxy, Total, Immunoassay (08/31/2024 6:36 AM EDT) Vitamin D 25-OH Total 39.4 >30 ng/mL [facility] Comment: Health Based Reference Values*< 20 ng/mL Fatqmnxbh54-56 ng/mL Insufficient> 30 ng/mL Sufficient*Ant TROTTER. N Engl J Med. 2007;357:266-280There is no well-established upper level of normal vitamin Dlevels. Some laboratories use 50 ng/mL as an upper limit ofnormal. However, toxicity is patient-dependent and may occurat any level. Careful correlation with the patient'spresentation is necessary and, if there is concern forvitamin D toxicity, treatment should be consideredirrespective of the serum level.Care must be taken in interpreting Vitamin D results fromdifferent laboratories and methodologies. Published datademonstrated that results from patients undergoinghemodialysis may show a negative bias when tested withvarious automated 25-OH vitamin D assays when compared toLC-MS/MS.When testing samples from patients whose predominant form ofVitamin D is Vitamin D2, such as patients receiving VitaminD2 supplementation, results that are subtherapeutic shouldbe confirmed with another method such as LC-MS/MS. Blood Venous blood specimen / Unknown 08/31/2024 6:36 AM EDT 08/31/2024 6:36 AM EDT Onelia Stanford [facility] LAB BLOOD ORDERABLES Final Resul t [facility] [address] [place] [phone] * TSH W/Reflex to FT4 (08/31/2024 6:36 AM EDT) TSH reflex Free T4 1.67 0.32 - 4.0 uIU/mL [facility] Blood Venous blood specimen / Unknown 08/31/2024 6:36 AM EDT 08/31/2024 6:36 AM EDT us Onelia DUARTE LAB BLOOD ORDERABLES Final Resul t Performing Organization Address [facility]/ZIP Co de Phone Number [facility] [address] [place] [phone] * STI testing add on (NG, CT, Trich) (08/12/2024 9:31 AM EDT) Trichomonas (NAAT) NOT DETECTED NOT DETECTED [facility] Comment:The analytical perfo rmance characteristics of thisassay have been determined by [employer]. Themodifications have not been cleared or approved bythe FDA. This assay has been validated pursuant to theIA regulations and is used for clinical purposes.For additional information, please refer tohttp://education.[employer]/faq/Trichomonastma(This link is being provided for information/educational purposes only.)THIS TEST WAS PERFORMED AT:[employer] [place] [phone] MCFARLAND MD CTNG Ref Lab NOT DETECTED NOT DETECTED [facility] NG Ref Lab NOT DETECTED NOT DETECTED [facility] ThinPrep vial Cervix uteri structure / Unknown 08/12/2024 9:31 AM EDT 08/16/2024 7:55 AM EDT Narrative [facility] - 08/18/2024 12:54 AM EDT Collection Date: [id number] by: BRITTANIE Montes De Oca: Cervix Stephanie AGUIRRE LAB CYTOLOGY ORDERABLES F inal Result Performing Organization Address City/[facility]/ZIP Co de Phone Number [facility] [address] [place] [address] [phone] * HPV DNA, Low/High Risk (08/12/2024 9:31 AM EDT) HPV High Risk Negative Negative [facility] HPV Genotype 16 Negative Negative [facility] HPV Genotype 18 Negative Negative [facility] Comment:HPV testing performe d at [facility] (CLIA#[id number]), [address] [place] [phone].Testing for HPV was performed using the Edwin MARCIE 6800system. The presence of HPV in the female genital tract isassociated with a number of diseases, including cervicalcarcinoma. The HPV DNA high risk pool tests for HPV 31, 33,35, 39, 45, 51, 52, 56, 58, 59, 66 and 68. The testing forHPV 16 and 18 genotypes has also been performed. A positiveresult indicates detection of nucleic acid sequences fromone or more subtypes, whereas a negative result indicatessuch sequences were not detected. 08/12/2024 9:31 AM EDT 08/16/2024 7:55 AM EDT us Stephanie Aleman CNM LAB BLOOD ORDERABLES Justa l Result [facility] [address] [place] [phone] * Pap Smear (08/12/2024 9:31 AM EDT) Swab Cervix uteri structure / Unknown 08/12/2024 9:31 AM EDT 08/16/2024 7:55 AM EDT Narrative [facility] - 08/18/2024 1:35 PM EDT ----- ------- Name: Ansley Zayas Age/Sex: 34/F : 1990 Unit#: [id number] Attend Dr: STEPHANIE ALEMAN CNM Re/03/25 Status: REG [facility]: ----- ------- SPEC : [id number] RECD: 08/16/24 STATUS: ALICIA GUILLERMO NUM: [id number] EMILY: 08/12/[address] [facility] [address]: STEPHANIE ALEMAN CNM ENTERED: 08/16/24 SP TYPE: Pap Smr OTHR DR: ORDERED: Pap Smear Interpretation Satisfactory for evaluation. Negative for intraepithelial lesion or malignancy. Fungal organisms consistent with Yamel species. Mild inflammation. HPV High Risk: Negative HPV Genotyping 16: Negative HPV Genotyping 18: Negative Clinical Information LMP: Unknown date Previous PAP test: Unknown date/findings Other history: Cervical cancer screening Material Received ThinPrep-Cervical PAP Disclaimer As of December 03, 2023, the technical services to include automated prescreening performed by the ThinPrep Imaging System, PAP screening and HPV testing will be performed at [facility] (CLIA #[id number]), [address] [place] [address]. Testing for HPV was performed using the Edwin MARCIE 6800 system. The presence of HPV in the female genital tract is associated with a number of diseases, including cervical carcinoma. The HPV DNA high risk pool tests for HPV 31, 33, 35, 39, 45, 51, 52, 56, 58, 59, 66 and 68. The testing for HPV 16 and 18 genotypes has also been performed. A positive result indicates detection of nucleic acid sequences from one or more subtypes, whereas a negative result indicates such sequences were not detected. All professional services are performed by [facility] ([address] [place] [address]; ; CLIA #[id number]). The PAP Test is a screening procedure with the inherent possibility of both false negative and false positive results. Results should be interpreted in the context of historic and current clinical findings. Reliability of the PAP Test is enhanced by performing the test on a regular repetitive basis. CONTINUED ON NEXT PAGE ----- ------- Name: Ansley Zayas Age/Sex: 34/F : 1990 Unit#: [id number] Attend Dr: STEPHANIE ALEMAN CNM Re08/12/24 Status: REG REF Location: HO.HHCLNP Disch: ----- ------- SPEC : [id number] RECD: 08/16/24 STATUS: ALICIA GUILLERMO NUM: [id number] EMILY: 08/12/[address] [facility] [address]: STEPHANIE ALEMAN ENTERED: 08/16/24 SP TYPE: Yovani HICKS DR: ORDERED: Pap Smear ----- ------- Signed (signature on file) SHAR Murguia ([facility]) 08/18/24 [id number] ----- ------- END OF REPORT Stephanie Aleman [facility] LAB CYTOLOGY ORDERABLES F inal Result Performing Organization Address [facility] Co de Phone Number [facility] [address] [place] [address] [phone] * Hepatitis C Antibody with Reflex to HCV, RNA, Quantitative, Real-Time PCR (07/02/2023 8:43 AM EDT) Hepatitis C Antibody Nonreactive Nonreactive [facility] Comment:Antibodies to HCV no t detected; does not exclude early acuteHCV infection. Blood Venous blood specimen / Unknown 07/02/2023 8:43 AM EDT 07/02/2023 11:04 AM EDT Onelia DUARTE LAB BLOOD ORDERABLES Final Resul t Performing Organization Address [facility] de Phone Number [facility] [address] [place] [phone] * HIV-1/2 Antigen and Antibodies, Fourth Generation, with Reflexes (07/02/2023 8:43 AM EDT) HIV AB/AG Nonreactive Nonreactive [facility] Comment:HIV-1 p24 Ag and/or HIV-1/HIV-2 Ab not detected.A test result that is nonreactive does not exclude thepossibility of exposure to or infection with HIV-1 and/orHIV-2. Nonreactive results in this assay for individualswith prior exposure to HIV-1 and/or HIV-2 may be due toantigen and antibody levels that are below the limit ofdetection of this assay.The OneRecruit HIV Ag/Ab Combo assay result andsupplemental assay results should be interpreted inconjunction with the patient's clinical presentation,history and other laboratory results. If the results areinconsistent with clinical evidence, additional testing issuggested to confirm the result. Blood Venous blood specimen / Unknown 07/02/2023 8:43 AM EDT 07/02/2023 11:04 AM EDT Onelia Stanford ANP LAB BLOOD ORDERABLES Final Resul t Performing Organization Address [facility] de Phone Number [facility] [address] [place] [phone] * (ABNORMAL) Lipid Panel, Standard (07/02/2023 8:43 AM EDT) Triglycerides 75 <150 mg/dL [facility] Comment:Desirable Triglyceri de: less than 150 mg/dLBorderline High Triglyceride 150-199 mg/dLHigh Triglyceride: 200-499 mg/dLVery High Triglyceride: greater than or equal to 5OO mg/dL Cholesterol 187 <200 mg/dL [facility] Comment:Desirable Cholestero l: less than 200 mg/dLBorderline High Cholesterol: 200-239 mg/dLHigh Cholesterol: greater than 239 mg/dL LDL Cholesterol Calculated 102(H) <100 mg/dL [facility] Comment:Desirable LDL: less than 100 mg/dLNear Optimal/Above Optimal LDL: 110- 129 mg/dLBorderline High LDL: 130-159 mg/dLHigh LDL: 160-189 mg/dLVery High LDL: greater than or equal to 190 mg/dL HDL Cholesterol 70 >40 mg/dL [facility] Comment:Desirable HDL: great er than 40 mg/dL Note: This HDL assay may give artificially low results in patients with liver disease. Blood Venous blood specimen / Unknown 07/02/2023 8:43 AM EDT 07/02/2023 11:04 AM EDT Onelia Stanford ANP LAB BLOOD ORDERABLES Final Resul t Performing Organization Address [facility] Co de Phone Number [facility] [address] [place] [phone] from Last 3 Months or Most Recently Relevant to Health Maintenance [place] [address] [place] [id number] Care Teams Urban Planning Professor Relationship Specialty Start Date End Date Onelia Stanford ANP [address] [place] [phone] PCP - General Family Medicine 04/09/19
--- OUTSIDE RECORDS SUMMARY | 2024-11-02 10:20 | XMS_ITS | Encounter Summary ---
Author Organization [facility] Address [address] [place] [address] Phone Care Team Providers Care Color Consultant Name Role Phone Maria Elena Alston NP Primary Care Provider [phone] Encounter Details Date Type Department Care Team (Late st Contact Info) Description 08/10/2010 Documentation EM Family Medicine [address] [place] [address] Family Medicine, Physician [address] [place], [place] [address] Social History Tobacco Use Types Packs/Day Years [...] on filedocumented in this encounter Care Teams Color Consultant Relationship Specialty Start Date End Date Maria Elena Alston NP PCP - General 09/20/16 documented as of this encounter
--- OUTSIDE RECORDS SUMMARY | 2024-11-02 10:20 | XMS_ITS | Encounter Summary ---
Author Organization [employer] Address [address] [place] [address] [address] [place] [address] Care Team Providers Care Perinatal Coordinator Name Role Phone Domonique Duong Primary Care Provider [phone] Reason for Visit * Reason Comments Med Change Request Encounter Details Date Type Department Care Team ([facility] st Contact Info) Description 10/21/2023 Refill [facility] [address] [place], [place] [phone] Domonique Duong ANP [address] [place] [address] Non-seasonal allergic rhinitis due to other allergic [...] Description 12/23/2024 10:15 AM EST Office Visit [facility] [address] [place] [phone] Domonique Duong ANP [address] [place] [phone] documented as of this encounter Visit Diagnoses Diagnosis Non-seasonal allergic rhinitis due to other allergic trigger documented in this encounter Additional Health Concerns Assessment Noted Time PHQ-9 Depression Total Score: 0 06/24/19 24 10:23 AM EDT documented as of this encounter Care Teams Perinatal Coordinator Relationship Specialty Start Date End Date Domonique Duong ANP [address] [place] [phone] PCP - General Family Medicine 04/09/19 documented as of this encounter
--- OUTSIDE RECORDS SUMMARY | 2024-11-02 10:20 | XMS_ITS | Encounter Summary ---
Author Organization [employer] Address [address] [place] [address] Care Team Providers Care Transit Police Officer Name Role Phone Domonique Duong Primary Care Provider [phone] Encounter Details Date Type Department Care Team (Late st Contact Info) Description 11/06/2022 Orders Only [facility] [address] [place] [address] Melba Winchester LPN Social History Tobacco Use [...] Description 12/23/2024 10:15 AM EST Office Visit [facility] [address] [place] [address] Domonique Duong ANP [address] [place] [address] documented as of this encounter Visit Diagnoses Not on filedocumented in this encounter Care Teams Transit Police Officer Relationship Specialty Start Date End Date Domonique Duong ANP [address] [place] [address] PCP - General Family Medicine 04/09/19 documented as of this encounter
--- OUTSIDE RECORDS SUMMARY | 2024-11-02 10:20 | XMS_ITS | Encounter Summary ---
Author Organization [employer] Address [address] [place] [address] [address] [place] [address] Care Team Providers Care Cellophane Bag Machine Operator Name Role Phone Domonique Duong Primary Care Provider [phone] Reason for Visit * Reason Onset Date Comments Med Refill 10/27/2024 Encounter Details Date Type Department Care Team (Late st Contact Info) Description 10/27/2024 Refill [facility] [address] [place] [address] Domonique Duong ANP [address] [place] [address] Non-seasonal allergic rhinitis due to other allergic [...] Description 12/23/2024 10:15 AM EST Office Visit [facility] [address] [place] [address] Domonique Duong ANP [address] [place] [address] documented as of this encounter Visit Diagnoses Diagnosis Non-seasonal allergic rhinitis due to other allergic trigger documented in this encounter Additional Health Concerns Assessment Noted Time PHQ-9 Depression Total Score: 9 07/02/19 25 10:23 AM EDT documented as of this encounter Care Teams Cellophane Bag Machine Operator Relationship Specialty Start Date End Date Domonique Duong ANP [address] [place] [phone] PCP - General Family Medicine 04/09/19 documented as of this encounter
--- OUTSIDE RECORDS SUMMARY | 2024-11-02 10:20 | XMS_ITS | Clinical Summary ---
Author Organization [facility] Address [address] [place] [phone] Phone Care Team Providers Care Field Service Specialist Name Role Phone Ad Domonique DUARTE Primary Care Provider [phone] Allergies No known active allergies Medications dextroamphetami [...] SCREENING (18-65 YEARS) 2010 PAP SMEAR 2013 INFLUENZA VACCINE (#1) 2024 4, 01/16/2009, 01/16/2009, Additional history exists COVID-19 VACCINE ( season) 2024 07/24/2020, 06/26/2020 Adult Td,Tdap Booster 04/09/2029 04/09/2019 [...] Medical Devices Not on file Insurance [facility] [employer] [facility] [employer] [facility]3 ACO [facility] A[facility] C3 ACO [facility]3 ACO [facility] C3 ACO [facility] C3 ACO Care Teams Field Service Specialist Relationship Specialty Start Date End Date Domonique Duong ANP [address] [place] [phone] PCP - General Family Medicine 06/07/21 Additional Source Comments The information contained in this document represents components of the legal health record. It is not the complete legal health record.[facility]
--- OUTSIDE RECORDS SUMMARY | 2024-11-02 10:20 | XMS_ITS | Encounter Summary ---
Author Organization [facility] Address [address] [place] [address] Phone Care Team Providers Care Instrument Repairer Helper Name Role Phone Maria Elena Alston NP Primary Care Provider [phone] Encounter Details Date Type Department Care Team (Late st Contact Info) Description 09/26/2016 Conversion Encounter [facility] - [address] [address] Social History Tobacco Use Types Packs/Day Years [...] on filedocumented in this encounter Care Teams Instrument Repairer Helper Relationship Specialty Start Date End Date Maria Elena Alston NP PCP - General 09/20/16 documented as of this encounter
--- OUTSIDE RECORDS SUMMARY | 2024-11-02 10:20 | XMS_ITS | Encounter Summary ---
Author Organization [employer] Address [address] [place] [address] [place] [address] Care Team Providers Care Milk Truck Driver Name Role Phone Domonique Duong Primary Care Provider [phone] Reason for Visit * Reason Onset Date Comments Med Refill 10/27/2024 Encounter Details Date Type Department Care Team (Late st Contact Info) Description 10/27/2024 Refill [facility] MED[facility]INE [address] [place] [address] Domonique Duong ANP [address] [place] [address] Right hip pain Social History Tobacco Use Types Packs/Day Years [...] Description 12/23/2024 10:15 AM EST Office Visit [facility] [address] [place] [phone] Domonique Duong ANP [address] [place] [address] documented as of this encounter Visit Diagnoses Diagnosis Right hip pain Pain in joint, pelvic region and thigh documented in this encounter Additional Health Concerns Assessment Noted Time PHQ-9 Depression Total Score: 9 07/02/19 25 10:23 AM EDT documented as of this encounter Care Teams Milk Truck Driver Relationship Specialty Start Date End Date Domonique Duong ANP [address] [place] [id number] PCP - General Family Medicine 04/09/19 documented as of this encounter
--- OUTSIDE RECORDS SUMMARY | 2024-11-02 10:20 | XMS_ITS | Encounter Summary ---
Author Organization [employer] Address [address] [place] [address] 7t [place] [address] Care Team Providers Care Building Illuminating Engineer Name Role Phone Domonique Duong Primary Care Provider [phone] Encounter Details Date Type Department Care Team ([facility] st Contact Info) Description 09/15/2024 Results Follow-Up [facility] MEDICINE [address] [place], [place] [phone] Domonique Duong, ANP [address] [place] [address] XR Hip 2 or 3 Views Right Social History Tobacco Use Types Packs/Day Years [...] Description 12/23/2024 10:15 AM EST Office Visit [facility] MEDICINE [address] [place] [phone] Domonique Duong ANP [address] [place] [address] documented as of this encounter Visit Diagnoses Not on filedocumented in this encounter Additional Health Concerns Assessment Noted Time PHQ-9 Depression Total Score: 9 07/02/19 25 10:23 AM EDT documented as of this encounter Care Teams Building Illuminating Engineer Relationship Specialty Start Date End Date Domonique Duong ANP [address] [place] [id number] PCP - General Family Medicine 04/09/19 documented as of this encounter
--- OUTSIDE RECORDS SUMMARY | 2024-11-02 10:20 | XMS_ITS | Encounter Summary ---
Author Organization [facility] Address [address] [place] [address] Phone Care Team Providers Care Induction Machine Operator Name Role Phone Maria Elena Alston NP Primary Care Provider [phone] Encounter Details Date Type Department Care Team (Late st Contact Info) Description 09/19/2011 Documentation [facility] [facility] [address] [place] [address] Family Medicine, Physician [address] [place], [place] [id number] Social History Tobacco Use Types Packs/Day Years [...] on filedocumented in this encounter Care Teams Induction Machine Operator Relationship Specialty Start Date End Date Maria Elena Alston NP PCP - General 09/20/16 documented as of this encounter
--- OUTSIDE RECORDS SUMMARY | 2024-11-02 10:20 | XMS_ITS | Encounter Summary ---
Author Organization [facility] Address [address] [place] [address] Phone Care Team Providers Care Caser In Name Role Phone Maria Elena Alston NP Primary Care Provider [phone] Encounter Details Date Type Department Care Team (Late st Contact Info) Description 03/17/2015 Documentation [facility] Medicine [address] [place] [address] Family Medicine, Physician [address] [place] [address] Social History Tobacco Use Types Packs/Day Years [...] on filedocumented in this encounter Care Teams Caser In Relationship Specialty Start Date End Date Maria Elena Alston NP PCP - General 09/20/16 documented as of this encounter
== END 2024-11-02 09:01 | disposition home or self-care (01) ==
LOC: HO.NEURO 09:00
PROVIDERS: PCP Nurse Practitioner Primary Care
DX: R20.0 Anesthesia of skin (principal); R20.2 Paresthesia of skin
CPT/HCPCS: 95886; 95911

== ENCOUNTER → 2024-11-02 09:33 | Outpatient (BNV) | payer OTHER, SELFPAY | PROVIDERS: PCP Nurse Practitioner Primary Care; Visit Provider Psychiatry & Neurology Neurology | DX: G62.89 Other specified polyneuropathies (principal) | CPT/HCPCS: 95886; 95911 ==

== ENCOUNTER 2024-11-18 08:36 | Outpatient (REF) | payer OTHER, SELFPAY ==
[2024-11-18 11:13] LABS: MANUAL DIFF FLAG NO
[2024-11-18 11:55] LABS: Hematocrit 41.8 % (37.0-47.0); Hemoglobin 13.8 g/dl (12.0-16.0); Imm Gran Abs Auto 0.02 X10*3/uL (0.00-0.03); Imm Gran Pct Auto 0.3 % (0.0-0.4); Lymphocytes Absolute Auto 1.8 X10*3/uL (1.2-4.9); Mean Corpuscular HGB Conc 33.0 g/dl (31.0-35.0); Mean Corpuscular Hemoglobin 30.5 pg (27.0-33.0); Mean Corpuscular Volume 92.3 fL (80.0-98.0); NRBC Abs Auto 0.000 X10*3/uL (0.0-0.012); NRBC Pct Auto 0.0 /100WBC (0.0-0.2); Platelet Count 272 X10*3/uL (160-400); Red Blood Count 4.53 X10*6/uL (4.20-5.50); White Blood Count 7.1 X10*3/uL (4.8-10.8)
[2024-11-18 12:03] LABS: Anion Gap 10 (12-20); Blood Urea Nitrogen 12 mg/dL (9-16); Calcium 9.5 mg/dL (8.4-10.2); Carbon Dioxide 27 mmol/L (22-29); Chloride 109 mmol/L (96-108); Estimated Glomerular Filt Rate > 60; Potassium 4.8 mmol/L (3.3-5.1); Sodium 141 mmol/L (135-145)
[2024-11-18 12:35] LABS: Folate 13.8 ng/mL (> or = 4.0); Vitamin B12 627 pg/mL (200-900)
[2024-11-18 16:52] LABS: Hemoglobin A1C 104.0867 umol/L; Total Hemoglobin (HGBA1C) 3532.5003 umol/L
[2024-11-19 09:34] LABS: Lyme Abs Screen <0.90 index
[2024-11-19 21:14] LABS: Prot Elec - Albumin 4.4 g/dL (3.8-4.8); Prot Elec - Alpha1 0.3 g/dL (0.2-0.3); Prot Elec - Alpha2 0.6 g/dL (0.5-0.9); Prot Elec - Beta 1 0.4 g/dL (0.4-0.6); Prot Elec - Beta 2 0.3 g/dL (0.2-0.5); Prot Elec - Gamma 1.0 g/dL (0.8-1.7); Prot Elec - Total Protein 7.0 g/dL (6.1-8.1)
== END 2024-11-18 08:37 | disposition home or self-care (01) ==
LOC: HO.HHCL 08:36
PROVIDERS: PCP Nurse Practitioner Primary Care; Visit Provider Nurse Practitioner Primary Care
DX: G62.9 Polyneuropathy, unspecified (principal)
CPT/HCPCS: 36415; 80048; 82607; 82746; 83036; 84165; 84443; 85025; 85652; 86038; 86140; 86617; 86618

== ENCOUNTER 2024-12-30 17:00 | Outpatient (RCR) | payer OTHER, SELFPAY | END 2025-01-11 11:45 | disposition home or self-care (01) | LOC: HO.PT 17:00 | PROVIDERS: PCP Nurse Practitioner Primary Care | DX: M25.551 Pain in right hip (principal) | CPT/HCPCS: 97110; 97140; 97162; 97530 ==